=== PATIENT | male | born 1995 | race Caucasian/White ===

== ENCOUNTER 2017-05-23 20:02 | Emergency (ER) | payer OTHER, MEDICAID, SELFPAY ==
[2017-05-23 20:04] VITALS: BP 100/59; PULSE 86; RESP 17; TEMP 36.9; O2SAT 98; BMI 32.4
[2017-05-23 20:09] VITALS: BP 100/59; PULSE 90; RESP 17; O2SAT 99
--- NOTE | 2017-05-23 20:36 | CT_ITS ---
STUDY: CT ABDOMEN AND PELVIS WITH CONTRAST REASON FOR EXAM: Male, 21 years old. PT HAD EPISODE OF NEAR SYNCOPE AT HOME, DIAPHORETIC, CHANGES IN FACE AND TONGUE COLOR, ABD PAIN X 2 WEEKS, PT HAS DOWN SYNDROME, ATRIAL SEPTAL DEFECT, MVP RADIATION DOSAGE (If Supplied By Facility): CTDIvol = ( 15.00 ) mGy, DLP = ( 2262.20 ) mGycm TECHNIQUE: Transaxial images were obtained from the dome of the diaphragm to the symphysis pubis with oral contrast. 75ML ml of Isovue 370 contrast was administered. Sagittal and coronal images were reconstructed. Individualized dose optimization techniques were used for this CT. COMPARISON: None. FINDINGS: The visualized lung bases are unremarkable. The visualized portions of the heart are within normal limits. There is a linear density that is seen projecting near the region of the atrial septum, presumably from a prior intervention. Normal liver. Normal gallbladder and extrahepatic biliary system. Normal spleen. Normal pancreas. Normal bilateral adrenal glands. Normal right kidney. Normal left kidney. Normal visualized stomach. Normal small intestine. Normal colon. There is non-visualization of the appendix. No inflammatory changes in the region of the appendix. Normal abdominal aorta. Normal inferior vena cava. Normal retroperitoneum. Normal urinary bladder. Normal visualized prostate gland. Normal abdominal wall. Normal osseous structures. CT/Abdomen/Pelvis WITH Contrast IMPRESSION: No acute abnormality of the abdomen or pelvis. Electronically Signed: Mercedes Estrada MD at 23:01 EST Tel , Service support ,
--- NOTE | 2017-05-23 20:36 | EKG12_ITS ---
Test Reason : MAITE Blood Pressure : / mmHG Vent. Rate : 057 BPM Atrial Rate : 057 BPM P-R Int : 150 ms QRS Dur : 148 ms QT Int : 416 ms P-R-T Axes : 011 -47 -04 degrees QTc Int : 404 ms Sinus bradycardia with sinus arrhythmia Right bundle branch block Left anterior fascicular block Bifascicular block Abnormal ECG Confirmed by JIMMIE STRICKLAND, EDNA ([id number]), associate entertainment editor ROC RAY ([id number]) on 05/25/2017 2:24:20 PM Referred By: DR. RING Confirmed By:EDNA SAMUEL MD
--- NOTE | 2017-05-23 20:42 | ED.RN ---
NO OLD EKG'S IN MUSE
[2017-05-23 20:49] LABS: Absolute Lymphocyte Count 1.55 X10^3/ul (0.83-4.51); Absolute Neutrophil Count 6.5 X10^3/uL (2.0-7.7); Basophil# 0.06 X10^3/uL; Basophil% 0.7 % (0-1); Eosinophil# 0.09 X10^3/uL; Hematocrit 46.1 % (40-54); Hemoglobin 16.3 g/dl (13.0-16.5); Lymphocyte # 1.55 X10^3/ul (4.0); Mean Corp Hgb Conc 35.4 g/gl (32-36); Mean Corpuscular Hgb 32.8 pg (27.0-32.0); Mean Corpuscular Volume 92.8 fL (80-94); Monocyte# 0.46 X10^3/uL; Monocyte% 5.3 % (0-10); Neutrophil # 6.46 X10^3/uL (2.7-7.7); Neutrophil % 74.9 % (47-70); Platelet Count 225 K/mm3 (150-450); RBC Distribution Width CV 13.5 % (11.6-14.6); RBC Distribution Width SD 45.2 fl (35.1-43.9); Red Blood Count 4.97 M/mm3 (4.6-6.2); White Blood Count 8.6 K/mm3 (4.4-11.0)
[2017-05-23 20:50] LABS: POSITIVE COUNT NO; POSITIVE DIFFERENTIAL NO; POSITIVE MORPHOLOGY NO
[2017-05-23 20:54] VITALS: BP 119/78; BP 127/112; BP 133/112; PULSE 70; PULSE 94; PULSE 95
[2017-05-23 20:57] LABS: Anion Gap 10 (5-15); BUN 15 mg/dL (7-18); BUN/Creat Ratio 14.3 RATIO (10-20); Calcium,Total 8.9 mg/dL (8.5-10.1); Chloride 105 mmol/L (98-107); Creatinine, Serum 1.05 mg/dL (0.70-1.30); EST Glomerular Filtration Rate 96 mL/min (>60); Est Glom Filt Rate - Afr Amer 116 mL/min (>60); Estimated Creatinine Clearance 112.68 ml/min; Glucose 102 mg/dL (74-106); Potassium 3.7 mmol/L (3.5-5.1); Sodium Level 141 mmol/L (136-145)
[2017-05-23] MEDS: 0.9% Normal Saline 1,000 ML 1000 ML IV (21:04)
[2017-05-23 21:52] LABS: Bacteria 0 SEEN /hpf (None Seen); Mucous, Urine 0 SEEN /hpf (<or=2+); Red Blood Cells-Urine 0 SEEN /hpf (0-5)
[2017-05-23 21:57] LABS: Color, Urine Yellow (Yellow); Glucose, Dipstick Normal (Normal); Ketone-Dipstick Negative (Negative); Leukocyte Esterase-Dipstick 25 /ul (Negative); Nitrite-Dipstick Negative (Negative); Occult Blood-Urine Negative /ul (Negative); Protein-Dipstick 15 mg/dl (Negative); Specific Gravity, Urine 1.015 (1.002-1.030); Urine Bilirubin Dipstick Negative (Negative); Urine Clarity Sl. Cloudy (Clear); Urine Urobilinogen Normal (Normal)
--- NOTE | 2017-05-23 22:04 | CT_ITS ---
STUDY: CTA CHEST REASON FOR EXAM: Male, 21 years old. PT HAD EPISODE OF NEAR SYNCOPE AT HOME, DIAPHORETIC, CHANGES IN FACE AND TONGUE COLOR, ABD PAIN X 2 WEEKS, PT HAS DOWN SYNDROME, ATRIAL SEPTAL DEFECT, MVP RADIATION DOSAGE (If Supplied By Facility): CTDIvol = ( 15.00 ) mGy, DLP = ( 2262.20 ) mGycm TECHNIQUE: The examination was performed with the intravenous administration of 75ML ml of Isovue 370 contrast material. Post-processing of the angiographic images was performed, with multiplanar reformation and 3D reconstruction. Individualized dose optimization techniques were used for this CT. COMPARISON: None. FINDINGS: Normal enhancement of the main pulmonary artery and right and left pulmonary arteries. Normal enhancement of the bilateral peripheral pulmonary arteries. There is no demonstrated pulmonary embolism. Normal thoracic aorta and visualized great vessels. There is no demonstrated aortic dissection. Normal heart and pericardium. Normal mediastinum. Normal hilar regions. Normal visualized trachea and bronchi. The lungs are well expanded. Normal pulmonary parenchyma. Normal pleura. Normal chest wall structures. Normal osseous structures. Normal visualized upper abdomen. CT/CTA Chest W/WO Contrast IMPRESSION: Normal CTA chest examination, without a demonstrated pulmonary embolism or arterial dissection. Electronically Signed: Mercedes Estrada MD at 23:08 EST Tel , Service support ,
[2017-05-23 22:09] LABS: Squamous Epithelial Cells - UA 0-5 SEEN /hpf (0-5); White Blood Cells 0-5 SEEN /hpf (0-5)
--- NOTE | 2017-05-23 23:01 | ED.DCSUM_ITS ---
- ER Visit Summary Date of Service: 05/23/17 Chief Complaint: Syncope History of Present Illness: The patient is a 21 M presenting after syncopal episode. Family states that the patient stood up felt dizzy and passed out in a family member's arms. He did feel this coming on. He complains of abdominal pain and nausea. Denies vomiting or diarrhea. He has a history of hypothyroidism and Down syndrome. He had ASD repair at age 6. No problems since that time. He is not a smoker. Denies chest pain or shortness of breath. Physical Examination: Vitals are stable. Patient is afebrile. Alert no acute distress. HEENT exam is unremarkable. Neck is supple. Lungs are clear and equal bilaterally. Heart is regular rate and rhythm. Abdomen is soft right lower quadrant tenderness, no rebound or guarding. Extremities are unremarkable. Skin is warm and dry. No focal neurologic deficit. Remainder of exam is unremarkable. Emergency Department Course and Treatment: EKG is sinus rate of 57 with bifascicular block. No old for comparison. CBC, chemistries unremarkable. Urinalysis is normal. Influenza negative. Orthostatics negative. He was given IV fluids with improvement. CTA chest shows no PE or dissection. CT abdomen and pelvis shows no acute process, appendix is not visualized, no inflammatory changes in the right lower quadrant. Parents are advised to watch him closely for the next 24-48 hours. Advised return to ED if he has any worsening complaints. He is able to ambulate in the ED and has no further dizziness. He feels much improved. He has no abdominal tenderness on re-exam. Advised to follow-up with PCP and advised to return to ED for worsening complaints. Disposition: Discharge home Impression: Syncope, abdominal pain This note was generated with [employer] dictation software. It may contain incorrect words, spelling, and punctuation that were not noted in review of the chart prior to signing ED Disposition - Plan for ED Patient: Chief Complaint: Syncope Referrals: Paola Crooks NP-C [Primary Care Provider] -
--- NOTE | 2017-05-23 23:41 | ED.DEP ---
ED Disposition - Plan for ED Patient: Chief Complaint: Syncope Instructions: ED Fainting Unkn Cause, ED Abdominal Pain Unkn Cause Referrals: Paola Crooks, SOCK BOARDER-C [Primary Care Provider] -
[2017-05-23 23:49] VITALS: BP 118/69; PULSE 92; RESP 20; O2SAT 96
== END 2017-05-23 23:49 | disposition home or self-care (01) ==
PROVIDERS: Emergency Provider Emergency Medicine; Family Provider Nurse Practitioner Primary Care; PCP Nurse Practitioner Primary Care
DX: R55 Syncope and collapse (principal); R10.813 Right lower quadrant abdominal tenderness; E03.9 Hypothyroidism, unspecified; Q90.9 Down syndrome, unspecified; I45.2 Bifascicular block; Z79.899 Other long term (current) drug therapy
CPT/HCPCS: 71275; 74177; 80048; 81001; 85025; 87804; 93005; 96360; 96361; 96365; 96366; 99285; J7030; Q9967; A4216

== ENCOUNTER 2017-06-24 21:45 | Emergency (ER) | payer OTHER, MEDICAID, SELFPAY ==
[2017-06-24 21:46] VITALS: BP 122/83; PULSE 105; RESP 19; TEMP 36.9; O2SAT 98; BMI 30.6
--- NOTE | 2017-06-24 21:52 | EKG12_ITS ---
Test Reason : PAIN Blood Pressure : / mmHG Vent. Rate : 105 BPM Atrial Rate : 105 BPM P-R Int : 150 ms QRS Dur : 130 ms QT Int : 346 ms P-R-T Axes : 039 -52 025 degrees QTc Int : 457 ms Sinus tachycardia with frequent Premature ventricular complexes Right bundle branch block Left anterior fascicular block Bifascicular block Abnormal ECG Confirmed by XIMENA STRICKLAND, ROCAEL ([id number]), publishing editor ROC RAY ([id number]) on 06/27/2017 4:14:16 PM Referred By: CHAPO Confirmed By:ROCAEL BUENO MD
--- NOTE | 2017-06-24 22:15 | RAD_ITS ---
STUDY: X-RAY CHEST REASON FOR EXAM: Male, 21 years old. Fever TECHNIQUE: Frontal and lateral views of the chest were obtained. COMPARISON: CTA chest dated May 23, 2017 FINDINGS: The lungs are underaerated. There are no focal airspace opacities. There is no demonstrated pleural abnormality. The cardiac silhouette is normal in size. The mediastinum and hilar regions are unremarkable. Normal visualized pulmonary arteries. Normal visualized aortic arch and descending thoracic aorta. The thoracic spine is unremarkable. The visualized ribs, clavicles, and shoulders are unremarkable. There is no demonstrated abnormality of the visualized upper abdomen. RAD/Chest PA and Lateral IMPRESSION: There is no evidence of focal consolidation or pleural effusion. Electronically Signed: Maria Guadalupe Mendieta MD at 23:23 EDT Tel Direct: [phone], Service support ,
--- NOTE | 2017-06-24 22:17 | ED.VISSUMM ---
- ER Visit Summary Date of Service: 06/24/17 Chief Complaint: Fever and abdominal pain History of Present Illness: The patient is a 21 M Downs syndrome and hypothyroidism. As a 6-year-old had ASD repair. He was treated in the ER several weeks ago with a negative workup according to the family. Yesterday and today started having abdominal pain with reported fever. Family denies nausea, vomiting and diarrhea. Denied dysuria. He did not stop denies any prior abdominal surgeries. Physical Examination: Young male vital signs stable afebrile. Pulse ox 98% room air no signs of hypoxia. H EENT exam dry mucous membranes. No erythema. No exudate. TMs cannot be visualized due to wax bilaterally. Neck nontender no lymphadenopathy or meningismus. Lungs clear to auscultation bilaterally. No rales rhonchi or wheezing no significant cough. Heart tachycardic rate of 105. Abdomen is soft diffusely tender throughout. Nondistended. No peritoneal signs. No hernias or masses. No localizing right upper or right lower quadrant tenderness. Moving all 4 extremities. Nontender. No erythema. No edema. Back exam nontender. Neurologically is Down syndrome he is awake and alert. He will open his eyes. He does follow limited commands. He really does not answer many questions. Test Results: Chest x-ray showed no acute abnormality no infiltrate read both by myself the radiologist. CBC normal with a white count of 6. BMP normal. With a normal creatinine and gap. Liver enzymes and lipase normal. UA normal. CT abdomen pelvis with IV contrast showed no acute abnormalities read by the radiologist reviewed by me. No signs of appendicitis. EKG sinus rhythm rate of 105 with a right bundle branch block. That was ordered by nursing. Emergency Department Course and Treatment: Male with reported abdominal pain and a fever at home. Treatment Plan: Gio exam the patient is doing well at 0105. Abdomen is benign there are no peritoneal signs is nondistended. I discussed all test results with the patient and family and they are comfortable being discharged to home. Disposition: Discharge Impression: Acute abdominal pain uncertain etiology Acute viral syndrome This note was generated with [employer] software. It may contain incorrect words, spelling, and punctuation that were not noted in review of the chart prior to signing ED Disposition - Plan for ED Patient: Chief Complaint: Abd Pain Referrals: Paola Crooks NP-C [Primary Care Provider] -
[2017-06-24] MEDS: 0.9% Normal Saline 1,000 ML 1000 ML IV (22:18)
[2017-06-24 22:28] LABS: Absolute Lymphocyte Count 0.74 X10^3/ul (0.83-4.51); Absolute Neutrophil Count 5.3 X10^3/uL (2.0-7.7); Basophil# 0.06 X10^3/uL; Basophil% 0.9 % (0-1); Eosinophil# 0.03 X10^3/uL; Eosinophils% 0.5 % (0-5); Lymphocyte # 0.74 X10^3/ul (4.0); Lymphocyte % 11.6 % (19-41); Mean Corp Hgb Conc 34.8 g/gl (32-36); Mean Corpuscular Hgb 32.6 pg (27.0-32.0); Mean Corpuscular Volume 93.7 fL (80-94); Monocyte# 0.23 X10^3/uL; Monocyte% 3.6 % (0-10); Neutrophil % 83.2 % (47-70); Platelet Count 174 K/mm3 (150-450); RBC Distribution Width CV 13.4 % (11.6-14.6); RBC Distribution Width SD 46.2 fl (35.1-43.9); Red Blood Count 4.91 M/mm3 (4.6-6.2); White Blood Count 6.4 K/mm3 (4.4-11.0)
[2017-06-24 22:30] LABS: POSITIVE COUNT NO; POSITIVE DIFFERENTIAL NO; POSITIVE MORPHOLOGY NO
--- NOTE | 2017-06-24 22:50 | CT_ITS ---
STUDY: CT ABDOMEN AND PELVIS WITH CONTRAST REASON FOR EXAM: Male, 21 years old. Abdominal pain. Fever. RADIATION DOSAGE (If Supplied By Facility): DLP = ( 1154 ) mGycm TECHNIQUE: Transaxial images were obtained from the dome of the diaphragm to the symphysis pubis without oral contrast. 100ML ml of Isovue 300 contrast was administered. Sagittal and coronal images were reconstructed. Individualized dose optimization techniques were used for this CT. COMPARISON: 05/23/2017 FINDINGS: This study is limited by patient motion. The visualized lung bases are clear. The visualized portions of the heart and pericardium are within normal limits. There are no calcified gallstones present. The liver is within normal limits. There are no suspicious hepatic lesions. The spleen is normal in size. The pancreas is within normal limits. The adrenal glands are within normal limits. There are no obstructing renal stones. There is no hydronephrosis. There are no focal renal lesions. Normal visualized stomach. There is no bowel obstruction or inflammation. The appendix is not visualized, but there are no findings to suggest acute appendicitis. The aorta is normal in caliber. There is no abdominal or pelvic free air, free fluid, fluid collection or lymphadenopathy. There are no destructive osseous lesions. CT/Abdomen/Pelvis W IV Cont ONLY IMPRESSION: No acute abdominal or pelvic pathology. Electronically Signed: Anupam Hsu, at 23:25 EDT Tel , Service support ,
[2017-06-24 22:53] LABS: AST(SGOT) 21 U/L (15-37); Alanine Aminotransfer ALT/SGPT 25 U/L (16-61); Albumin, Serum 3.7 g/dL (3.2-5.0); Alkaline Phosphatase 111 U/L (45-117); Anion Gap 9 (5-15); BUN 17 mg/dL (7-18); BUN/Creat Ratio 14.3 RATIO (10-20); Bilirubin, Direct 0.11 mg/dL (0.00-0.30); Calcium,Total 8.6 mg/dL (8.5-10.1); Chloride 105 mmol/L (98-107); Creatinine, Serum 1.19 mg/dL (0.70-1.30); EST Glomerular Filtration Rate 83 mL/min (>60); Est Glom Filt Rate - Afr Amer 100 mL/min (>60); Estimated Creatinine Clearance 70.61 ml/min; Globulin 4.5 g/dL (2.2-4.2); Glucose 94 mg/dL (74-106); Lipase 119 U/L (73-393); Potassium 3.7 mmol/L (3.5-5.1); Protein, Total 8.2 g/dL (6.4-8.2); Sodium Level 139 mmol/L (136-145)
[2017-06-24] MEDS: Ondansetron 4 MG/2 ML Vial IV (23:05)
[2017-06-24 23:16] VITALS: BP 130/104; PULSE 103; RESP 21; O2SAT 96
[2017-06-24 23:42] LABS: Bacteria 0 SEEN /hpf (None Seen); Mucous, Urine 0 SEEN /hpf (<or=2+); Red Blood Cells-Urine 0 SEEN /hpf (0-5); Squamous Epithelial Cells - UA 0 SEEN /hpf (0-5); White Blood Cells 0 SEEN /hpf (0-5)
[2017-06-24 23:47] LABS: Color, Urine Yellow (Yellow); Glucose, Dipstick Normal (Normal); Ketone-Dipstick Negative (Negative); Leukocyte Esterase-Dipstick Negative /ul (Negative); Nitrite-Dipstick Negative (Negative); Occult Blood-Urine Negative /ul (Negative); Protein-Dipstick Negative (Negative); Urine Bilirubin Dipstick Negative (Negative); Urine Clarity Clear (Clear); Urine Urobilinogen Normal (Normal)
--- NOTE | 2017-06-25 01:12 | ED.DEP ---
ED Disposition - Plan for ED Patient: Disposition: Home or Assisted Living Chief Complaint: Abd Pain Instructions: ED Abdominal Pain Unkn Cause, ED Viral Syndrome Referrals: Paola Crooks, SENIOR PRINCIPAL PROCESS ENGINEER-C [Primary Care Provider] - As Needed Additional Instructions: Fluids and rest. Zofran as needed for nausea. Return if feeling worse or follow-up your primary care physician if not improving.
[2017-06-25] MEDS: Ondansetron ODT 4 MG Tablet PO (01:28)
[2017-06-25 01:32] VITALS: BP 130/72; PULSE 81; RESP 17; O2SAT 95
--- NOTE | 2017-06-25 01:33 | ED.RN ---
IV DC'ED, CATHETER INTACT, SMALL GAUZE DRESSING PLACED. DISCHARGE INSTRUCTIONS GIVEN TO AND REVIEWED WITH PATIENT AND FAMILY, ALL DENY QUESTIONS OR CONCERNS AND VOICE UNDERSTANDING OF DISCHARGE INSTRUCTIONS. PT AMBULATES OUT OF ROOM WITHOUT DIFFICULTY.
== END 2017-06-25 01:34 | disposition home or self-care (01) ==
PROVIDERS: Emergency Provider Emergency Medicine; Family Provider Nurse Practitioner Primary Care; PCP Nurse Practitioner Primary Care
DX: R10.9 Unspecified abdominal pain (principal); R50.9 Fever, unspecified; B34.9 Viral infection, unspecified; I45.2 Bifascicular block; Q90.9 Down syndrome, unspecified; E03.9 Hypothyroidism, unspecified; Z79.899 Other long term (current) drug therapy
CPT/HCPCS: 71046; 74177; 80048; 80076; 81001; 83690; 85025; 93005; 96361; 96374; 99285; J7030; Q9967; J2405

== ENCOUNTER 2020-03-25 11:23 | Observation (INO) | payer MEDICAID, SELFPAY ==
[2020-02-19 11:45] VITALS: BMI 32.4
--- NOTE | 2020-03-23 14:19 | EKG12_ITS ---
Test Reason : PRE OP Blood Pressure : / mmHG Vent. Rate : 082 BPM Atrial Rate : 082 BPM P-R Int : 156 ms QRS Dur : 142 ms QT Int : 388 ms P-R-T Axes : 042 -53 033 degrees QTc Int : 453 ms Normal sinus rhythm Right bundle branch block Left anterior fascicular block Bifascicular block Voltage criteria for left ventricular hypertrophy Abnormal ECG Confirmed by CHANDLER STRICKLAND, PASHA ([id number]), supervising editor trailer MORAIMA PALOMINO ([id number]) on 04/05/2020 9:08:01 AM Referred By: Tommy West Confirmed By:GRZEGORZ ARTEAGA MD
--- NOTE | 2020-03-24 23:12 | PCM.HP.BLA ---
History and Physical Date of Admission: 03/25/20 HISTORY OF PRESENT ILLNESS Patient is a 24 year old male with Down's who comes in today with persistent pain from recent flare up of hidradenitis left axilla. He just finished a course of Minocycline. He has also applied Clindamycin gel. He states he has had I&D procedures in the past. He has been having trouble with hidradenitis for the past year. He denies fever. He denies trauma. He has had intermittent drainage. He presents at this time for further evaluation and treatment. PAST MEDICAL HISTORY Left axillary hidradenitis Heart murmur Heart valve problem IBS (irritable bowel syndrome) Recurrent infections Vision problems Hypothyroid Down's PAST SURGICAL HISTORY Atrial septal defect mitral valve repair strabismus surgery tonsillectomy ALLERGIES cefazolin [From [facility]] MEDICATIONS Lactobacillus acidoph-L.bulgaricus clindamycin phosphate 1 % lotion multivitamin minocycline FAMILY HISTORY Grandfather - Diabetes Grandfather - Heart disease, Hypertension, High cholesterol SOCIAL HISTORY Smoking Status: Never smoker alcohol intake: never substance use type: does not use REVIEW OF SYSTEMS General - Denies fever, fatigue, and weight loss. Eyes - Denies cataracts and glaucoma. ENT - Denies nasal congestion and sore throat. History of tonsillectomy. Surgery on both eyes because they were turning in. Endocrine - Denies excessive thirst and urination. Skin - Denies suspicious lesions and skin cancer. Musculoskeletal - Denies joint pain, joint stiffness, weakness of muscles and joints, back pain, and arthritis. Neuro - Denies headaches. Cardiovascular - Denies chest pain, fatigue, and shortness of breath with exertion. Has a history of heart heart murmur with an atrial septal defect repair and mitral valve repair at age 6. Psych - Denies anxiety and depression. Respiratory - Denies chronic cough and shortness of breath. Gastrointestinal - Denies nausea and vomiting. He has a history of IBS that was diagnosed in 2018. Hematologic - Denies abnormal bruising and bleeding. Genitourinary - Denies hematuria and urinary frequency. PHYSICAL EXAMINATION General - Alert and oriented. HEENT - PERRL. EOMI. Throat is clear. Neck - Supple and non-tender. No cervical adenopathy. Lungs- Clear to auscultation. Heart - Regular rate and rhythm. Abdomen - Soft and non distended. Extremities - FROM. No axillary adenopathy. Radial pulses are palpable. In the left axilla is an area of redness and induration and tenderness to palpation consistent with hidradenitis. No fluctuance. No purulent drainage. Measures 8 cm. Neuro - CN II-XII grossly intact. Psych - Normal mood and affect. ASSESSMENT Left axillary hidradenitis. PLAN Recommend excision of his persistent hidradenitis left axilla which can be done under general anesthesia and a surgical observation overnight stay in the hospital. Tissue that is removed will be sent to Pathology for analysis to rule out carcinoma and to Microbiology for culture. A positive culture will necessitate antibiotic therapy. Will leave the wound open and begin wound care with the VAC. After discharge can followup at [facility]. If there is a plateau in the healing process, can proceed with delayed closure with skin grafting. Will schedule the surgery in the next 1-2 weeks. Will renew Minocycline that he can take until the surgery and can also use in the future for flare ups. Patient and his mother were informed of the risks and complications of the procedure including alternatives to surgery. These were discussed with them personally. They voice understanding and wish to proceed. Some of the risks and complications were included in a form from the [place] [employer]. We discussed the current risks associated with COVID-19. While it is understood that there is a community spread of COVID-19, the risk of lissa COVID-19 while at [facility] ([facility]) is very low; however, the risk cannot be completely mitigated because of the community spread of the disease. We discussed in detail the risk of exposure to and/or potential harm posed by the COVID-19 virus with having a surgery/procedure at this time versus the risk of delaying the surgery/procedure. It is not possible to know either the risk of delaying the surgery or procedure or chance of getting an infection with perfect accuracy, but a joint decision was made to proceed at this time with the scheduled surgery/procedure as indicated on the consent form. Patient was notified that we will need to comply with any screening or testing [facility] wishes to perform or that surgery may be delayed for any positive results. Discussed with the patient and his mother that I was tested for COVID-19 on 10/16/19 which was negative and on 10/30/19 which was negative and on 11/13/19 which was negative and on 11/27/19 which was negative and on 12/11/19 which was negative and on 01/01/20 which was negative and on 01/22/20 which was negative and on 02/26/20 which was negative and on 03/18/20 which was negative. My testing regimen at this time is to be COVID-19 tested every 2 weeks or so. Procedure Criteria Procedure Type: Elective COVID Risk Discussion: The surgeon/proceduralist and patient have discussed in detail the risk of exposure to and/or potential harm posed by the COVID-19 virus with having a surgery/procedure at this time versus the risk of delaying the surgery/procedure. It is not possible to know either the risk of delaying the surgery or procedure or chance of getting an infection with perfect accuracy, but a joint decision was made between the patient and the surgeon/proceduralist to proceed at this time with the scheduled surgery/procedure as indicated on the consent form.
[2020-03-25] VITALS (11 sets, daily range): BP systolic 98–133; BP diastolic 57–84; PULSE 60–81; RESP 16–18; TEMP 36.3–37.2; O2SAT 94–99; BMI 30.2; BMI 33.5
[2020-03-25] MEDS: Lactated Ringers 1,000 ML 100 ML IV (09:42)
--- NOTE | 2020-03-25 10:45 | SOF_PTH ---
PATIENT: ROSETTE CROOKS LOC: MS3 U#:[id number] AGE/SX: 24/M ROOM: MS306 RE03/25/[address]: Dr. Tommy West MD : 1995 BED: 1 DIS: 03/26/2020 SPEC #: [id number] RECD: 03/25/20 11:17 STATUS: TOÑO REQ #: [id number] JOSÉ: 03/25/20 10:[address]: Tommy West DEPT: SURGICAL PATHOLOGY RECD BY: Ivana Mckoy ENTERED: 03/25/20 11:31 SP TYPE: SOFT TISS OTHR DR: Paola Crooks, OPEN HEARTH HELPER-C Tissues: Soft tissues, NOS Procedures: Special Stain Group I Surgery Specimen Level IV AFB Stain (control) GMS Stain (control) HEADER OPERATION: Surgical preparation axilla excision, hidradenitis PRE-OP DIAGNOSIS: Left axillary hidradenitis TISSUE SUBMITTED: Soft tissue left axilla MICROSCOPIC DIAGNOSIS Soft tissue left axilla: Acute and chronic inflammation, abscess formation, granulation tissue reaction and foreign body giant cell reaction. Epidermal inclusion cyst. Six benign lymph nodes with reactive lymphoid hyperplasia. Special stains for acid fast bacilli and fungi are negative for organisms; matched controls are appropriate. YAYA:jefferson 03/26/20 MICROSCOPIC DESCRIPTION Slides are reviewed. GROSS DESCRIPTION Received in fixative is one container labeled with the patient's name and designated soft tissue left axilla. The specimen consists of a piece of skin with underlying tissue measuring 6.5 x 3.5 cm and up to 3 cm in thickness. Sections reveal two nodules, possible lymph nodes, focal congested area. The largest lymph node measures 2.5 cm in greatest dimension. Accident Examiner sections are submitted in six cassettes as follows: 1 & 2 - skin with underlying tissue, 3 - two lymph nodes, 4 - one bisected lymph node, 5 - two lymph nodes, 6 - one lymph node. / YAYA:jefferson 03/25/20 TC:2 CPT: 84537, 92318 x2
[2020-03-25] MEDS: Lidocaine 1% /Epi 1:100 (20ml) 20 ML Vial (10:52)
--- NOTE | 2020-03-25 11:18 | OP.PCM_ITS ---
Report of Operation Date of Procedure: 03/25/20 Pre-Operative Diagnosis: Left axillary hidradenitis. Post-Operative Diagnosis: Same. Surgery/Procedure Performed:: Surgical preparation left axilla with excision hidradenitis (63 cm2). Description of Surgical Findings:: Patient is a 24 year old male with Down's who comes in today with persistent pain from recent flare up of hidradenitis left axilla. He just finished a course of Minocycline. He has also applied Clindamycin gel. He states he has had I&D procedures in the past. He has been having trouble with hidradenitis for the past year. He denies fever. He denies trauma. He has had intermittent drainage. Patient and his mother were informed of the risks and complications of the procedure including alternatives to surgery. These were discussed with them personally. They voice understanding and wish to proceed. Some of the risks and complications were included in a form from the [place] [employer]. Size of defect left axilla - 10.5 x 6 x 2 cm. clerk entry level: None Type of Anesthesia:: General Specimen's removed: Left axillary hidradenitis to Pathology and Microbiology. Drains: None. Estimated Blood Loss (mL): 10 ml. Description of Procedure: Patient was taken to OR in supine position and was placed under general anesthesia. The left axilla was prepped and draped in the usual fashion. SCD's were placed for DVT prophylaxis. Perioperative antibiotics were given intravenously. For the procedure, I wore an N95 mask and wore proper eyewear protection. Using a scalpel, I proceeded with surgical preparation of the left axilla with excision of her hidradenitis. No purulent drainage was seen. In the subcutaneous tissue, there was extensive fat necrosis. There was extensive indurated scar tissue extending down to the underlying muscle and was excised. Some of the tissue was sent to Pathology for analysis to rule out carcinoma and to Microbiology for culture. A positive culture will necessitate antibiotic therapy. The wound was irrigated with saline. Hemostasis was obtained with electrocautery. The size of the defect left axilla after excision hidradenitis was 10.5 x 6 x 2 cm or 63 cm2. The wound was dressed with Mepitel nonadherent dressing followed by Kerlix gauze and Betadine followed by dry Kerlix gauze followed by ABD pads and compression COURTNEY wrap. Patient tolerated the procedure well and was sent to PACU in satisfactory condition. Patient will be sent upstairs for continued postop care. The VAC will be applied tomorrow. Grafts/Implants Used: None. - Complications None. - Admit VTE Documentation VTE Present on Admission: No VTE Mechan Device Prophylaxis: SCD's VTE Pharm Prophylaxis ordered?: No Surgery Charges CPT - 84080 ICD-10 - L73.2
[2020-03-25] MEDS: Lactated Ringers 1,000 ML 60 ML IV (13:05)
--- NOTE | 2020-03-25 14:07 | PCS.PANDOC ---
PANDEMIC DOCUMENTATION INITIATED: Date: 03/25/2020 Time: 8900
[2020-03-25] MEDS: Multivitamins,Therapeutic Tablet 2 TABLET PO (16:14)
[2020-03-25] MEDS: oxyCODONE 5 MG Tablet 10 MG PO (17:15)
[2020-03-25] MEDS: Docusate Sodium 100 MG Capsule PO (22:54)
[2020-03-26] MEDS: oxyCODONE 5 MG Tablet 10 MG PO ×2 (01:07→09:50)
[2020-03-26 01:10] VITALS: BP 105/63; PULSE 66; RESP 18; TEMP 36.2; O2SAT 95
[2020-03-26] MEDS: Lactated Ringers 1,000 ML 60 ML IV (05:54)
[2020-03-26 06:03] VITALS: BP 110/68; PULSE 72; RESP 18; TEMP 36.3; O2SAT 95
[2020-03-26 07:09] LABS: Hemoglobin 14.9 g/dL (13.0-16.5); Mean Corp Hgb Conc 33.1 g/dL (32-36); Mean Corpuscular Hgb 31.6 pg (27.0-32.0); Mean Corpuscular Volume 95.5 fL (80-94); Mean Platelet Vol. 9.4 fl (6.2-12.0); Platelet Count 200 K/mm3 (150-450); RBC Distribution Width CV 13.2 % (11.6-14.6); RBC Distribution Width SD 47.4 fl (35.1-43.9); Red Blood Count 4.71 M/mm3 (4.6-6.2); White Blood Count 4.6 K/mm3 (4.4-11.0)
[2020-03-26 07:38] LABS: Anion Gap 3 (5-15); BUN 18 mg/dL (7-18); BUN/Creat Ratio 18.7 RATIO (10-20); Calcium,Total 8.2 mg/dL (8.5-10.1); Chloride 104 mmol/L (98-107); Creatinine, Serum 0.96 mg/dL (0.70-1.30); EST Glomerular Filtration Rate 103 mL/min (>60); Est Glom Filt Rate - Afr Amer 125 mL/min (>60); Estimated Creatinine Clearance 85.36 ml/min; Glucose 85 mg/dL (74-106); Potassium 4.2 mmol/L (3.5-5.1); Prealbumin 25.8 mg/dL (20.0-40.0); Sodium Level 136 mmol/L (136-145)
[2020-03-26 09:00] VITALS: BP 98/60; PULSE 63; RESP 18; TEMP 37.1; O2SAT 98
[2020-03-26] MEDS: Multivitamins,Therapeutic Tablet 2 TABLET PO (09:44)
[2020-03-26] MEDS: Docusate Sodium 100 MG Capsule PO (09:44)
--- NOTE | 2020-03-26 09:45 | CASEMGMT ---
Addendum entered by Beatriz Thomas 03/26/20 11:02: SARAI LEO called Kasi at [facility] and they are able to accept the patient. RN FELIPA updated wound nurse and mother. Original Note: SARAI LEO updated by wound nurse that patient will need C for wound vac dressing changes. SARAI LEO in to discuss HHC agencies with mother in room. Mother states that she has no preference for HHC as long as in-network with [employer] insurance. SARAI LEO sent referral to [facility] and they are not able to accept the patient. Referral sent to [facility] and awaiting call back. CM will continue to follow this patient and plan for a safe discharge.
--- NOTE | 2020-03-26 11:10 | NURSING ---
wound photo: left axilla
--- NOTE | 2020-03-26 12:54 | PN.SURG_ITS ---
Subjective: Postop #1 Patient is resting comfortably. VAC applied today. - Physical Exam Vitals/I&O's: Vital Signs Temp Pulse Resp BP Pulse Ox 98.7 F 63 18 98/60 98 03/26/20 09:00 03/26/20 09:00 03/26/20 09:00 03/26/20 09:00 03/26/20 09:00 Oxygen Delivery Method Room Air Weight: 171 lb 15.369 oz Body Mass Index (BMI) 33.5 Intake and Output for Last 24 Hours 03/24/20 03/25/20 03/26/20 23:59 23:59 23:59 Intake Total 1502.33 / 1502.33 1154 / 1154 Balance 1502.33 / 1502.33 1154 / 1154 General: Alert, Oriented x3 HEENT: PERRLA, EOMI Oral: Moist Mucosa Neck: Supple Abdomen: Soft, Non-Distended Skin: Ulcer/ Wound - left axillary wound stable. No active bleeding. VAC applied today. Neurological: Cranial nerves II-XII grossly intact Psych/Mental Status: Normal Affect, Appropriate Microbiology Past 72 Hours 03/25/20 10:59 Other - Other Gram Stain - Final 03/23/20 14:30 Interface Orders SARS-CoV-2 Antigen (Rapid) - Final Laboratory Results 03/26/20 06:33: WBC 4.6, RBC 4.71, Hgb 14.9, Hct 45.0, MCV 95.5 H, MCH 31.6, MCHC 33.1, RDW Std Deviation 47.4 H, RDW Coeff of Etienne 13.2, Plt Count 200, MPV 9.4 03/26/20 06:33: Sodium 136, Potassium 4.2, Chloride 104, Carbon Dioxide 29.0, Anion Gap 3 L, BUN 18, Creatinine 0.96, Estim Creat Clear Calc 85.36, Est GFR (MDRD) Af Amer 125, Est GFR (MDRD) Non-Af 103, BUN/Creatinine Ratio 18.7, Glu cose 85, Calcium 8.2 L, Prealbumin 25.8 Current Medications Diazepam (Diazepam 5 Mg Tablet) 5 mg PO 4X/DAY PRN PRN PRN Reason: SPASMS Docusate Sodium (Docusate Sodium 100 Mg Capsule) 100 mg PO BID MIYA Last Admin: 03/26/20 09:44 Dose: 100 mg Documented by: Hydromorphone HCl (Hydromorphone 1 Mg/Ml Syringe) 1 mg IV Q4H PRN PRN PRN Reason: Pain Score 6-10 Clindamycin Phosphate 600 mg/ (Dextrose) 54 mls @ 100 mls/hr IV Q8 [facility] Last Infusion: 03/26/20 06:47 Dose: Infused Documented by: Lactated Ringer's () 1,000 mls @ 60 mls/hr IV .[id number] [facility] Last Admin: 03/26/20 05:54 Dose: 60 mls/hr Documented by: Lactobacillus Acidophilus (Lactobacillus Acidophilus) 1 tablet PO TID [facility] Last Admin: 03/26/20 06:01 Dose: 1 tablet Documented by: Multivitamins (Multivitamins,Therapeutic Tablet) 2 tablet PO BIDCM [facility] Last Admin: 03/26/20 09:44 Dose: 2 tablet Documented by: Nutritional Formula (Nutritional Supplement ([place]ug[place]) Packet) 1 packet PO BIDCM [facility] Last Admin: 03/26/20 09:44 Dose: 1 packet Documented by: Ondansetron HCl (Ondansetron 4 Mg/2 Ml Vial) 4 mg IV Q6H PRN PRN PRN Reason: NAUSEA Oxycodone HCl (Oxycodone 5 Mg Tablet) 10 mg PO Q4H PRN PRN PRN Reason: Pain Score 6-10 Last Admin: 03/26/20 09:50 Dose: 10 mg Documented by: Promethazine HCl (Promethazine 25 Mg Tablet) 25 mg PO Q4H PRN PRN PRN Reason: NAUSEA/VOMITING Sodium Chloride (0.9% Saline Lock 10 Ml Syringe) 10 - 40 ml IV UD PRN PRN Reason: SALINE FLUSH Medical Necessity - Tobacco Use Smoking Status: Never smoker Assessment/Plan All Active Problems (Last Reviewed 03/20/20 @ 16:[address] Tommy West MD) Open wound of left axillary region with complication (Acute) 1. Left axillary hidradenitis. 2. s/p surgical preparation left axilla with excision hidradenitis (63 cm2). Left axillary wound is stable. No active bleeding noted. VAC applied. It has been approved. To be changed three times per week at 150 mmHg continuous suction. Operative cultures are pending. Will continue Minocycline at home. Prealbumin was 25.8. Encourage nutritional supplementation with protein to help the healing process. Encourage range of motion exercises to minimize stiffness. Elevate left arm. Discharge home today. Followup Wound Center Sunday04/05/20. Wrote scripts for Percocet for pain (40 tabs) and for Valium for spasm (30 tabs).
--- NOTE | 2020-03-26 13:00 | PCM.DC ---
You will use the following diet at home:: No restrictions, Other - encourage nutritional supplementation with protein to help the healing process. Discharge Activity: May Shower - on the days the vac is changed., - - elevate left arm. no heavy lifting. May shower in (days): 2 - on the days the vac is changed. Weight Bearing Status: Weight bearing as tolerated Lifting Restrictions: 20 lbs. Keep extremity elevated above heart level: Left Arm Call your doctor if your incision/area has: Continuous Slow Oozing, Sudden Increased Bleeding, Increased Pain/ Swelling, Increased Redness, Foul Smelling Discharge, Swelling at the incision site Call your doctor if you observe: Fever of 101 or Higher, Coldness, Increased Pain, Shortness of breath, Chest pain, Calf discomfort, Uncontrolled pain Suture Line Care: - - vac changes to left axilla three times per week at 150 mmHg continuous suction. Cleanse incision/area with: Soap & Water - may cleanse the wound with soap and water at the time of the vac change., - - may shower on the days the vac is changed. Allergies/Adverse Reactions: Allergies cefazolin [From [facility]] Allergy (Verified 03/25/20 09:18) Rash Medications to take at Discharge Lactobacillus acidoph-L.bulgaricus 1 million cell chewable tablet 3 tab PO TID tab 03/09/20 multivitamin 2 tab PO BID tab 03/09/20 minocycline 100 mg capsule 100 mg PO BID #60 cap 03/20/20 Lymph Tone 25 drp PO DAILY 03/23/20 Stydric Greens 15 drp PO BID 03/23/20 Diazepam [Valium] 5 mg PO 4X/DAY PRN PRN #30 tablet 03/26/20 Oxycodone HCl/Acetaminophen [Percocet 5/325] 1 tablet PO Q4H PRN PRN 7 Days #40 tablet 03/26/20 The following prescriptions were given: Oxycodone HCl/Acetaminophen [Percocet 5/325] 1 tablet PO Q4H PRN PRN 7 Days #40 tablet PRN Reason: Pain Score 6-10 Transmission Status: Received by [address] Diazepam [Valium] 5 mg PO 4X/DAY PRN PRN #30 tablet PRN Reason: Spasms Transmission Status: Received by [address] Primary Care Physician: Paola Crooks [employer], [employer] [Primary Care Provider] - Test Results: Test results from this visit will be discussed in further detail at your follow-up appointment, if applicable. Please Follow Up With: Tommy West MD When: at wound center sunday04/05/20. call [phone] for appt. Proposed Discharge Date: 03/26/20
[2020-03-26 13:04] VITALS: BP 98/60; PULSE 80; RESP 18; TEMP 36.7; O2SAT 95
== END 2020-03-26 14:54 | disposition home health service (06) ==
LOC: SDC 13:32 → MS3 13:32
PROVIDERS: Admitting Provider Surgery; PCP Nurse Practitioner Primary Care; Referring Provider Surgery; Visit Provider Surgery
PROC: (CPT 11450; principal; 2020-03-25 10:30)
DX: L73.2 Hidradenitis suppurativa (principal); Z20.828 Contact with and (suspected) exposure to other viral communicable diseases; K58.9 Irritable bowel syndrome, unspecified; Q90.9 Down syndrome, unspecified; Z79.899 Other long term (current) drug therapy; L72.0 Epidermal cyst; R59.9 Enlarged lymph nodes, unspecified
CPT/HCPCS: 00400; 11450; 36415; 80048; 84134; 85027; 87015; 87070; 87075; 87077; 87102; 87116; 87176; 87205; 87206; 87426; 88305; 88312; 93005; 96365; 96366; 99218; C9803; J7120; G0378; G0379; J2405

== ENCOUNTER 2020-04-12 11:30 | Outpatient (RCR) | payer MEDICAID, SELFPAY ==
[2020-03-25 13:05] VITALS: BMI 33.5
[2020-04-05 13:08] VITALS: BP 122/73; PULSE 97; TEMP 36.6; BMI 33.5
--- NOTE | 2020-04-05 13:27 | PCM.WC.HP ---
(1) Open wound of left axillary region with complication Status: Acute Code(s): S41.102A - Unspecified open wound of left upper arm, initial encounter (2) Left axillary hidradenitis Status: Chronic Code(s): L73.2 - Hidradenitis suppurativa History of Present Illness Date of Service: 04/05/20 Chief Complaint: Left axilla hidradenitis History of Wound: Patient is a 24 year old male with Down's who had drainage from left axilla and had been placed on a course of Minocycline. He has also applied Clindamycin gel. He states he has had I&D procedures in the past. He has been having trouble with hidradenitis for the past year. He denies fever. He denies trauma. He has had intermittent drainage. 03/26/20 - Surgical preparation left axilla with excision hidradenitis (63 cm2). He was discharged on 03/27/20 with the wound VAC at 150 mmHg.Operative cultures positive for Actinomyces neuii and Anaerobic cocci. He was discharged on Doxycycline and Flagyl was added. He denies any fever and his mother states his apetite has been good. Past Medical History Past Medical History: Chronic Problems (Last Reviewed 03/20/20 @ 16:[address] Tommy West MD) Left axillary hidradenitis (Chronic) Past Medical History: History of Down's syndrome. Cardiac surgery as an . Allergies/Adverse Reactions: Allergies cefazolin [From [facility]] Allergy (Verified 04/05/20 13:25) Rash Home Medications: Ambulatory Orders Medication Instructions Recorded Lactobacillus acidoph-L.bulgaricus 3 tab PO TID tab 03/09/20 1 million cell chewable tablet multivitamin 2 tab PO BID tab 03/09/20 minocycline 100 mg capsule 100 mg PO BID #60 cap 03/20/20 Lymph Tone 25 drp PO DAILY 03/23/20 Diazepam [Valium] 5 mg PO 4X/DAY PRN PRN #30 tab 03/26/20 metronidazole 500 mg tablet 500 mg PO Q8H 10 Days #30 tab 03/30/20 Spygriac Greens 15 drp PO BID 04/05/20 Smoking Status: Never smoker Review of Systems Constitutional: Denies: Chills, Fever, Weight Change Eyes: Denies: Pain, Vision Change HEENT: Denies: Difficulty Hearing, Difficulty Swallowing, Sinus Congestion Cardiovascular: Denies: Chest Pain, Palpitations Respiratory: Denies: Cough, Shortness of Breath Gastrointestinal: Reports: - - History of IBS with intermittent episodes of abdominal pain with nausea and diarrhea.. Denies: Abdominal Pain Skin: Reports: Wounds - Left axilla wound is beefy pink. Neurological: Denies: Balance problems, Blurred vision Psychiatric: Denies: Anxiety, Depression Endocrine: Denies: Change in Body Habitus, Heat/ Cold Intolerance Hematologic/ Lymphatic: Denies: Easy Bruising, Easy Bleeding - Physical Exam Vital Signs Temp Pulse BP 97.8 F 97 122/73 H 04/05/20 13:08 04/05/20 13:08 04/05/20 13:08 General: Alert, Oriented x3, Cooperative HEENT: Atraumatic Oral: Moist Mucosa Lungs: Normal air movement Cardiovascular: Regular rate Extremities: Capillary Refill Less than 3 Seconds Skin: Ulcer/ Wound - Left axilla wound is beefy pink. Wound Measurements and Assessment WC - Nurse 1 - General Ulcer Measurement Start: 04/05/20 13:08 Freq: Status: Active Protocol: Activity Type Activity Date Activity User E-Sign Co-Sign Detail Recorded Client Recorded Date Recorded By Document 04/05/20 13:17 TIEN [id number] 04/05/20 13:23 TIEN 04/05/20 13:17 Wound Center Nurse 1 [Ulcer Assessment] #1 Left Axilla -Current Size (cm) - Length 10.6 -Current Size (cm) - Width 4.9 -Current Size (cm) - Depth 0.8 -Total Square Cm 51.94 -Date of Last Picture (Recall this 04/05/20 field) -Photo Taken Yes -Exudate Amt Small -Exudate Type Serosanguineous -Wound Margin Distinct, Outline Attached -Granulation Amt Medium (34-66%) -Granulation Quality Red -Necrosis Amt Small (1-33%) -Necrotic Tissue Type Adherent Slough -Texture (Abbie-wound Skin Appearance) Assessed, Scarring -Moisture (Abbie-wound Skin Appearance No Abnormality, ) Assessed -Color (Abbie-wound Skin Appearance) No Abnormality, Assessed -Temperature (Abbie-wound Skin No Abnormality Appearance) (Pt Warm) -Tenderness on Palpation (Abbie-wound Yes Skin Appearance) -Ulcer Cleansing [place] AND WATER -Anesthetic Used 4% Lidocaine Solution Musculoskeletal: No Tenderness to Palpation of Joints or Extremities Neurological: Cranial nerves II-XII grossly intact Psych/Mental Status: Normal Affect, Appropriate Debridement Note No debridement was completed today Assessment/Plan Active Problems (Last Reviewed 03/20/20 @ 16:[address] Tommy West MD) Open wound of left axillary region with complication (Acute) Left axillary hidradenitis (Chronic) Assessment: 1. Left axillary hidradenitis. 2. s/p surgical preparation left axilla with excision hidradenitis (63 cm2). Plan: Wound care - Wound VAC to 150 mmHg. Home health is involved to help with wound VAC dressing changes. Operative cultures positive for Actinomyces neuii and Anaerobic cocci. He was discharged on Doxycycline and Flagyl was added. Follow up one week. [id number]: [id number] Global Visit
[2020-04-12 11:55] VITALS: BP 143/80; PULSE 79; RESP 16; TEMP 36; BMI 33.5
--- NOTE | 2020-04-12 13:24 | PN.PCM_ITS ---
(1) Open wound of left axillary region with complication Status: Acute Code(s): S41.102A - Unspecified open wound of left upper arm, initial encounter (2) Left axillary hidradenitis Status: Chronic Code(s): L73.2 - Hidradenitis suppurativa Type of Wound Date of Service: 04/12/20 Chief Complaint: Left axilla hidradenitis History of Wound: Patient is a 24 year old male with Down's who had drainage from left axilla and had been placed on a course of Minocycline. He has also applied Clindamycin gel. He states he has had I&D procedures in the past. He has been having trouble with hidradenitis for the past year. He denies fever. He denies trauma. He has had intermittent drainage. 03/26/20 - Surgical preparation left axilla with excision hidradenitis (63 cm2). He was discharged on 03/27/20 with the wound VAC at 150 mmHg.Operative cultures positive for Actinomyces neuii and Anaerobic cocci. He was discharged on Doxycycline and Flagyl was added. He denies any fever and his mother states his apetite has been good. Progress of Wound: Improved. - Physical Exam Vital Signs Temp Pulse Resp BP 96.8 F L 79 16 143/80 H 04/12/20 11:55 04/12/20 11:55 04/12/20 11:55 04/12/20 11:55 General: Alert, Cooperative HEENT: Atraumatic Oral: Moist Mucosa Lungs: Normal air movement Cardiovascular: Regular rate Extremities: Capillary Refill Less than 3 Seconds Skin: Ulcer/ Wound - Left axilla ulcer is beefy pink. Wound Measurements and Assessment WC - Nurse 1 - General Ulcer Measurement Start: 04/05/20 13:08 Freq: Status: Active Protocol: Activity Type Activity Date Activity User E-Sign Co-Sign Detail Recorded Client Recorded Date Recorded By Document 04/12/20 11:55 [facility] [id number] 04/12/20 12:06 [facility] 04/12/20 11:55 Wound Center Nurse 1 [Ulcer Assessment] #1 Left Axilla -Combined with other wound No -Current Size (cm) - Length 10.8 -Current Size (cm) - Width 3.8 -Current Size (cm) - Depth 1 -Total Square Cm 41.04 -Photo Taken No -Epithelialization Small 1-33% -Tunneling No -Undermining/Tunneling No -Circular Undermining No -Exudate Amt Small -Exudate Type Serosanguineous -Wound Margin Distinct, Outline Attached -Granulation Amt Large (67-100%) -Granulation Quality Red -Slough/Fibrin Yes -Necrosis Amt Small (1-33%) -Necrotic Tissue Type Adherent Slough -Texture (Abbie-wound Skin Appearance) Assessed, Scarring -Moisture (Abbie-wound Skin Appearance Assessed ) -Color (Abbie-wound Skin Appearance) Assessed -Temperature (Abbie-wound Skin No Abnormality Appearance) (Pt Warm) -Tenderness on Palpation (Abbie-wound Yes Skin Appearance) -Ulcer Cleansing soapy water -Foul Odor after Cleansing No -Anesthetic Used 4% Lidocaine Solution WALTER - Nurse 2 - General Ulcer CM Notes Start: 04/05/20 13:08 Freq: Status: Active Protocol: Activity Type Activity Date Activity User E-Sign Co-Sign Detail Recorded Client Recorded Date Recorded By Document 04/12/20 12:29 VALDEMAR [id number] 04/12/20 12:32 VALDEMAR 04/12/20 12:29 Wound Center Nurse 2 [Procedure/Treatment] -Time 12:29 -Correct Patient Yes -Correct Side, Site, Position Yes -Correct Procedure Yes -Procedure Performed Yes -Type of Procedure Debridement -Clinical Debridement Subcutaneous -Tissue Removed Subcutaneous -Post Debridement (cm) - Length 10.5 -Post Debridement (cm) - Width 4.5 -Post Debridement (cm) - Depth 0.8 -Total Square (Post) (cm) 47.25 -Area of Debridement (cm) - Length 10.5 -Area of Debridement (cm) - Width 4.5 -Total Square (Area) (cm) 47.25 -Tunneling No -Undermining/Tunneling No -Circular Undermining No -Wound/Ulcer Outcome Not Healed -Ulcer Cleansing Rinsed/ Irrigated with Saline -Foul Odor after Cleansing No -Bioengineered Tissue No -Bleeding Controlled with Pressure -Offloading No -Treatment Response Procedure Tolerated Well -Debridement - Subq, 1st 20sq cm Yes -Debridement, SubQ, ea addt'l 20sq cm 2 or part thereof [See Physician Procedure note for Specifics] Pain Scale: 0-10 Numeric [Pain] -Is Patient Pain Free? Yes - Nurse 3 - General Ulcer D/C NN Start: 04/05/20 13:08 Freq: Status: Active Protocol: Activity Type Activity Date Activity User E-Sign Co-Sign Detail Recorded Client Recorded Date Recorded By Document 04/12/20 12:52 DL [id number] 04/12/20 12:53 DL 04/12/20 12:52 Wound Care Nurse 3 [Wound Dressing] #1 Left Axilla -Ulcer Cleansing Wound Cleanser -Foul Odor after Cleansing No -Negative Pressure Wound Therapy Continue -Setting (mmHg) 150 -Negative Pressure is Continuous -NPWT Application Charge ($) NPWT > 50 sq cm [Post Procedure Tolerated] -Treatment Response Procedure Tolerated Well Pain Scale: 0-10 Numeric [Pain] -Is Patient Pain Free? Yes - Visit Discharge [Visit Discharge Information] -Discharge Condition Stable -Ambulatory Status Ambulatory -Transportation Private Auto Debridement Note Post-Debridement Measurements/Treatment - Nurse 2 - General Ulcer CM Notes Start: 04/05/20 13:08 Freq: Status: Active Protocol: Activity Type Activity Date Activity User E-Sign Co-Sign Detail Recorded Client Recorded Date Recorded By Document 04/05/20 13:34 [id number] 04/05/20 13:38 Document 04/12/20 12:29 [id number] 04/12/20 12:32 04/05/20 04/12/20 13:34 12:29 Wound Center Nurse 2 #1 Left Axilla -Time 12:29 -Correct Patient No Yes -Correct Side, Site, Position No Yes -Correct Procedure No Yes -Procedure Performed No Yes -Type of Procedure Debridement -Clinical Debridement Subcutaneous -Tissue Removed Subcutaneous -Post Debridement (cm) - Length 10.5 -Post Debridement (cm) - Width 4.5 -Post Debridement (cm) - Depth 0.8 -Total Square (Post) (cm) 47.25 -Area of Debridement (cm) - Length 10.5 -Area of Debridement (cm) - Width 4.5 -Total Square (Area) (cm) 47.25 -Tunneling No No -Undermining/Tunneling No No -Circular Undermining No No -Wound/Ulcer Outcome Not Healed Not Healed -Ulcer Cleansing Rinsed/ Rinsed/ Irrigated with Irrigated with Saline Saline -Foul Odor after Cleansing No No -Bioengineered Tissue No No -Bleeding Controlled with Pressure Pressure -Offloading No No -Treatment Response Procedure Procedure Tolerated Well Tolerated Well -Debridement - Subq, 1st 20sq cm No Yes -Debridement, SubQ, ea addt'l 20sq cm 2 or part thereof Pain Scale: 0-10 Numeric Is Patient Pain Free? Yes Yes - Nurse 3 - General Ulcer D/C NN Start: 04/05/20 13:08 Freq: Status: Active Protocol: Activity Type Activity Date Activity User E-Sign Co-Sign Detail Recorded Client Recorded Date Recorded By Document 04/12/20 12:52 DL [id number] 04/12/20 12:53 DL 04/12/20 12:52 Wound Care Nurse 3 #1 Left Axilla -Ulcer Cleansing Wound Cleanser -Foul Odor after Cleansing No -Negative Pressure Wound Therapy Continue -Setting (mmHg) 150 -Negative Pressure is Continuous -NPWT Application Charge ($) NPWT > 50 sq cm Treatment Response Procedure Tolerated Well Pain Scale: 0-10 Numeric Is Patient Pain Free? Yes WC - Visit Discharge Discharge Condition Stable Ambulatory Status Ambulatory Transportation Private Auto Wound debrided: Axilla wound Laterality: Left Type of Debridement: Excisional debridement Anesthesia Used: 5% Lidocaine Gel Depth: Down to and including healthy tissue, in the subcutaneous layer Percentage of wound debrided: 100 Instrument Used: 5mm curette Tissue Removed: Subcutaneous tissue and slough Severity: Fat Layer Exposed Amount of bleeding with debridement: Mild Bleeding Controlled with: Pressure Patient tolerated procedure well Assessment/Plan Active Problems (Last Reviewed 03/20/20 @ 16:[address] Tommy West MD) Open wound of left axillary region with complication (Acute) Left axillary hidradenitis (Chronic) Assessment: 1. Left axillary hidradenitis. 2. s/p surgical preparation left axilla with excision hidradenitis (63 cm2). Plan: Wound care - Wound VAC to 150 mmHg. Home health is involved to help with wound VAC dressing changes. Operative cultures positive for Actinomyces neuii and Anaerobic cocci. He was discharged on Doxycycline and Flagyl was added. Follow up one week. [id number]: [id number] Global Visit
== END 2020-04-15 23:59 ==
LOC: WC 11:30
PROVIDERS: PCP Nurse Practitioner Primary Care; Referring Provider Surgery; Visit Provider Surgery
DX: L73.2 Hidradenitis suppurativa (principal); L98.492 Non-pressure chronic ulcer of skin of other sites with fat layer exposed; Q90.9 Down syndrome, unspecified; K58.9 Irritable bowel syndrome, unspecified; Z79.899 Other long term (current) drug therapy
CPT/HCPCS: 11042; 11045; 97606; 99213; G0463

== ENCOUNTER 2020-05-10 13:30 | Outpatient (RCR) | payer MEDICAID, SELFPAY ==
[2020-04-16 00:40] VITALS: BP 143/80; PULSE 79; RESP 16; TEMP 36
[2020-04-19 14:06] VITALS: BP 118/64; PULSE 94; TEMP 36; BMI 33.5
--- NOTE | 2020-04-19 14:41 | PCM.WC.PN ---
(1) Open wound of left axillary region with complication Status: Acute Code(s): S41.102A - Unspecified open wound of left upper arm, initial encounter (2) Left axillary hidradenitis Status: Chronic Code(s): L73.2 - Hidradenitis suppurativa Type of Wound Date of Service: 04/19/20 Chief Complaint: Left axilla hidradenitis History of Wound: Patient is a 24 year old male with Down's who had drainage from left axilla and had been placed on a course of Minocycline. He has also applied Clindamycin gel. He states he has had I&D procedures in the past. He has been having trouble with hidradenitis for the past year. He denies fever. He denies trauma. He has had intermittent drainage. 03/26/20 - Surgical preparation left axilla with excision hidradenitis (63 cm2). He was discharged on 03/27/20 with the wound VAC at 150 mmHg.Operative cultures positive for Actinomyces neuii and Anaerobic cocci. He was discharged on Doxycycline and Flagyl was added. He denies any fever and his mother states his apetite has been good. Progress of Wound: Left axilla wound is improved. - Physical Exam Vital Signs Temp Pulse Resp BP 96.8 F L 94 16 118/64 04/19/20 14:06 04/19/20 14:06 04/16/20 00:40 04/19/20 14:06 General: Alert, Cooperative HEENT: Atraumatic Oral: Moist Mucosa Neck: Supple Lungs: Normal air movement Cardiovascular: Regular rate Extremities: Capillary Refill Less than 3 Seconds Skin: Ulcer/ Wound - Left axilla wound is beefy pink. Wound Measurements and Assessment WC - Nurse 1 - General Ulcer Measurement Start: 04/19/20 14:05 Freq: Status: Active Protocol: Activity Type Activity Date Activity User E-Sign Co-Sign Detail Recorded Client Recorded Date Recorded By Document 04/19/20 14:06 TIEN [id number] 04/19/20 14:12 TIEN 04/19/20 14:06 Wound Center Nurse 1 [Ulcer Assessment] #1 Left Axilla -Current Size (cm) - Length 9.5 -Current Size (cm) - Width 2.9 -Current Size (cm) - Depth 0.2 -Total Square Cm 27.55 -Exudate Amt None Present -Wound Margin Distinct, Outline Attached -Granulation Amt Large (67-100%) -Granulation Quality Red -Necrosis Amt None Present (0 %) -Texture (Abbie-wound Skin Appearance) Assessed, Scarring -Moisture (Abbie-wound Skin Appearance No Abnormality, ) Assessed -Color (Abbie-wound Skin Appearance) No Abnormality, Assessed -Temperature (Abbie-wound Skin No Abnormality Appearance) (Pt Warm) -Tenderness on Palpation (Abbie-wound No Skin Appearance) -Ulcer Cleansing Rinsed/ Irrigated with Saline -Foul Odor after Cleansing No -Anesthetic Used 4% Lidocaine Solution Musculoskeletal: No Tenderness to Palpation of Joints or Extremities Neurological: Cranial nerves II-XII grossly intact Psych/Mental Status: Normal Affect, Appropriate Debridement Note Wound debrided: axilla wound Laterality: Left Type of Debridement: Excisional debridement Anesthesia Used: 5% Lidocaine Gel Depth: Down to and including healthy tissue, in the subcutaneous layer Percentage of wound debrided: 100 Instrument Used: 7mm curette Tissue Removed: Subcutaneous tissue and slough Severity: Fat Layer Exposed Amount of bleeding with debridement: Mild Bleeding Controlled with: Pressure Patient tolerated procedure well Assessment/Plan Assessment: 1. Left axillary hidradenitis. 2. s/p surgical preparation left axilla with excision hidradenitis (63 cm2). Plan: Wound care - Will take a wound VAC holiday this week per patient request. Will do daily Dakin's moistened gauze dressing changes. Home health is involved to help with wound VAC dressing changes. Operative cultures positive for Actinomyces neuii and Anaerobic cocci. He was discharged on Doxycycline, he completed the Flagyl. Follow up one week. [id number]: [id number] Global Visit
[2020-04-26 13:43] VITALS: BP 141/64; PULSE 88; RESP 18; TEMP 36.6; BMI 33.5
--- NOTE | 2020-04-26 14:33 | PCM.WC.PN ---
(1) Open wound of left axillary region with complication Status: Acute Code(s): S41.102A - Unspecified open wound of left upper arm, initial encounter (2) Left axillary hidradenitis Status: Chronic Code(s): L73.2 - Hidradenitis suppurativa Type of Wound Date of Service: 04/26/20 Chief Complaint: Left axilla hidradenitis History of Wound: Patient is a 24 year old male with Down's who had drainage from left axilla and had been placed on a course of Minocycline. He has also applied Clindamycin gel. He states he has had I&D procedures in the past. He has been having trouble with hidradenitis for the past year. He denies fever. He denies trauma. He has had intermittent drainage. 03/26/20 - Surgical preparation left axilla with excision hidradenitis (63 cm2). He was discharged on 03/27/20 with the wound VAC at 150 mmHg. We took a wound VAC holiday last week per patient request. Wound care has been Dakin's moistened gauzed dressings topped with ABD daily. Will Discontinue the VAC and continue with Dakin's dressing changes. Operative cultures positive for Actinomyces neuii and Anaerobic cocci. He was discharged on Doxycycline and Flagyl was added. He denies any fever and his mother states his apetite has been good. Progress of Wound: Left axilla wound is improved. - Physical Exam Vital Signs Temp Pulse Resp BP 97.8 F 88 18 141/64 H 04/26/20 13:43 04/26/20 13:43 04/26/20 13:43 04/26/20 13:43 General: Alert HEENT: Atraumatic Oral: Moist Mucosa Lungs: Normal air movement Cardiovascular: Regular rate Extremities: Capillary Refill Less than 3 Seconds Skin: Ulcer/ Wound - Left axilla wound is beefy pink. Periwound looks good. Good range of motion of left shoulder. Wound Measurements and Assessment WC - Nurse 1 - General Ulcer Measurement Start: 04/19/20 14:05 Freq: Status: Active Protocol: Activity Type Activity Date Activity User E-Sign Co-Sign Detail Recorded Client Recorded Date Recorded By Document 04/26/20 13:43 DL [id number] 04/26/20 13:49 DL 04/26/20 13:43 Wound Center Nurse 1 [Ulcer Assessment] #1 Left Axilla -Current Size (cm) - Length 8.5 -Current Size (cm) - Width 2.8 -Current Size (cm) - Depth 0.1 -Total Square Cm 23.80 -Photo Taken No -Exudate Amt Small -Wound Margin Distinct, Outline Attached -Granulation Amt Large (67-100%) -Granulation Quality Red -Necrosis Amt None Present (0 %) -Structure Exposed N/A -Texture (Abbie-wound Skin Appearance) Scarring -Moisture (Abbie-wound Skin Appearance Dry/Scaly ) -Color (Abbie-wound Skin Appearance) No Abnormality -Temperature (Abbie-wound Skin No Abnormality Appearance) (Pt Warm) -Tenderness on Palpation (Abbie-wound No Skin Appearance) -Ulcer Cleansing Rinsed/ Irrigated with Saline -Foul Odor after Cleansing No -Anesthetic Used 4% Lidocaine Solution WC - Nurse 2 - General Ulcer CM Notes Start: 04/19/20 14:05 Freq: Status: Active Protocol: Activity Type Activity Date Activity User E-Sign Co-Sign Detail Recorded Client Recorded Date Recorded By Document 04/26/20 14:03 [id number] 04/26/20 14:04 VALDEMAR 04/26/20 14:03 Wound Center Nurse 2 [Procedure/Treatment] -Correct Patient Yes -Correct Side, Site, Position Yes -Correct Procedure Yes -Procedure Performed Yes -Type of Procedure Debridement -Clinical Debridement Subcutaneous -Tissue Removed Subcutaneous -Post Debridement (cm) - Length 8.6 -Post Debridement (cm) - Width 2.5 -Post Debridement (cm) - Depth 0.2 -Total Square (Post) (cm) 21.50 -Area of Debridement (cm) - Length 8.6 -Area of Debridement (cm) - Width 2.5 -Total Square (Area) (cm) 21.50 -Tunneling No -Undermining/Tunneling No -Circular Undermining No -Wound/Ulcer Outcome Not Healed -Ulcer Cleansing Rinsed/ Irrigated with Saline -Foul Odor after Cleansing No -Bioengineered Tissue No -Bleeding Controlled with Pressure -Offloading No -Treatment Response Procedure Tolerated Well -Debridement - Subq, 1st 20sq cm Yes -Debridement, SubQ, ea addt'l 20sq cm 1 or part thereof [See Physician Procedure note for Specifics] Pain Scale: 0-10 Numeric [Pain] -Is Patient Pain Free? Yes - Nurse 3 - General Ulcer D/C NN Start: 04/19/20 14:05 Freq: Status: Active Protocol: Activity Type Activity Date Activity User E-Sign Co-Sign Detail Recorded Client Recorded Date Recorded By Document 04/26/20 14:13 [facility] [id number] 04/26/20 14:14 [facility] 04/26/20 14:13 Wound Care Nurse 3 [Wound Dressing] #1 Left Axilla -Ulcer Cleansing Rinsed/ Irrigated with Saline -Foul Odor after Cleansing No -Primary Dressing Applied Other -Other Dressing moist to dry -Primary Dressing Covered/Secured Dry Gauze, with Secured with Tape [Post Procedure Tolerated] -Treatment Response Procedure Tolerated Well Pain Scale: 0-10 Numeric [Pain] -Is Patient Pain Free? Yes - Visit Discharge [Visit Discharge Information] -Discharge Condition Stable -Ambulatory Status Ambulatory -Transportation Private Auto -Accompanied by mom [Facility Notification] -Facility Type Home Health Musculoskeletal: No Tenderness to Palpation of Joints or Extremities Neurological: Cranial nerves II-XII grossly intact Psych/Mental Status: Normal Affect, Appropriate Debridement Note Post-Debridement Measurements/Treatment - Nurse 2 - General Ulcer CM Notes Start: 04/19/20 14:05 Freq: Status: Active Protocol: Activity Type Activity Date Activity User E-Sign Co-Sign Detail Recorded Client Recorded Date Recorded By Document 04/19/20 15:35 PL [id number] 04/19/20 15:36 Document 04/26/20 14:03 [id number] 04/26/20 14:04 04/19/20 04/26/20 15:35 14:03 Wound Center Nurse 2 #1 Left Axilla -Time 14:25 -Correct Patient Yes Yes -Correct Side, Site, Position Yes Yes -Correct Procedure Yes Yes -Procedure Performed Yes Yes -Type of Procedure Debridement Debridement -Clinical Debridement Subcutaneous Subcutaneous -Tissue Removed Subcutaneous Subcutaneous -Post Debridement (cm) - Length 9.5 8.6 -Post Debridement (cm) - Width 3.5 2.5 -Post Debridement (cm) - Depth 0.2 0.2 -Total Square (Post) (cm) 33.25 21.50 -Area of Debridement (cm) - Length 9.5 8.6 -Area of Debridement (cm) - Width 3.5 2.5 -Total Square (Area) (cm) 33.25 21.50 -Tunneling No No -Undermining/Tunneling No No -Circular Undermining No No -Wound/Ulcer Outcome Not Healed Not Healed -Ulcer Cleansing Rinsed/ Rinsed/ Irrigated with Irrigated with Saline Saline -Foul Odor after Cleansing No No -Bioengineered Tissue No No -Bleeding Controlled with Pressure -Offloading No -Treatment Response Procedure Tolerated Well -Debridement - Subq, 1st 20sq cm Yes Yes -Debridement, SubQ, ea addt'l 20sq cm 1 1 or part thereof Pain Scale: 0-10 Numeric Is Patient Pain Free? Yes Yes - Nurse 3 - General Ulcer D/C NN Start: 04/19/20 14:05 Freq: Status: Active Protocol: Activity Type Activity Date Activity User E-Sign Co-Sign Detail Recorded Client Recorded Date Recorded By Document 04/19/20 14:42 DL [id number] 04/19/20 14:43 DL Document 04/26/20 14:13 [facility] [id number] 04/26/20 14:14 [facility] 04/19/20 04/26/20 14:42 14:13 Wound Care Nurse 3 #1 Left Axilla -Ulcer Cleansing Rinsed/ Rinsed/ Irrigated with Irrigated with Saline Saline -Foul Odor after Cleansing No No -Primary Dressing Applied Other -Other Dressing wet to dry/ moist to dry dakins -Primary Dressing Covered/Secured with Dry Gauze & Dry Gauze, Roll Gauze, Secured with Secured with Tape Tape Treatment Response Procedure Procedure Tolerated Well Tolerated Well Pain Scale: 0-10 Numeric Is Patient Pain Free? Yes Yes - Visit Discharge Discharge Condition Stable Stable Ambulatory Status Ambulatory Ambulatory Transportation Private Auto Private [place] [facility] [place] Health Wound debrided: Axilla wound Laterality: Left Type of Debridement: Excisional debridement Anesthesia Used: 5% Lidocaine Gel Depth: Down to and including healthy tissue, in the subcutaneous layer Percentage of wound debrided: 100 Instrument Used: 5mm curette Tissue Removed: Subcutaneous tissue and slough Severity: Fat Layer Exposed Amount of bleeding with debridement: Mild Bleeding Controlled with: Pressure Patient tolerated procedure well Assessment/Plan Active Problems (Last Reviewed 03/20/20 @ 16:[address] Tommy West MD) Open wound of left axillary region with complication (Acute) Left axillary hidradenitis (Chronic) Assessment: 1. Left axillary hidradenitis. 2. s/p surgical preparation left axilla with excision hidradenitis (63 cm2). Plan: Wound care - Continue daily Dakin's moistened gauze dressing changes. Will discontinue the VAC. Home health is involved to help with wound VAC dressing changes. Operative cultures positive for Actinomyces neuii and Anaerobic cocci. He was discharged on Doxycycline, he completed the Flagyl. Follow up two weeks. [id number]: [id number] Global Visit
[2020-05-10 14:01] VITALS: BP 148/88; PULSE 86; TEMP 35.7; BMI 33.5
--- NOTE | 2020-05-10 14:25 | PN.PCM_ITS ---
(1) Skin ulcer of axilla with fat layer exposed Status: Chronic Code(s): L98.492 - Non-pressure chronic ulcer of skin of other sites with fat layer exposed (2) Left axillary hidradenitis Status: Chronic Code(s): L73.2 - Hidradenitis suppurativa Type of Wound Date of Service: 05/10/20 Chief Complaint: Left axilla hidradenitis History of Wound: Patient is a 24 year old male with Down's who had drainage from left axilla and had been placed on a course of Minocycline. He has also applied Clindamycin gel. He states he has had I&D procedures in the past. He has been having trouble with hidradenitis for the past year. He denies fever. He denies trauma. He has had intermittent drainage. 03/26/20 - Surgical preparation left axilla with excision hidradenitis (63 cm2). He was discharged on 03/27/20 with the wound VAC at 150 mmHg. Wound care - Stop Dakin's moistened gauzed dressings and start Henrietta daily. Operative cultures positive for Actinomyces neuii and Anaerobic cocci. He was discharged on Doxycycline. Completed the Flagyl was added. He denies any fever and his mother states his apetite has been good. Progress of Wound: Left axilla wound is improved. - Physical Exam Vital Signs Temp Pulse Resp BP 96.3 F L 86 18 148/88 H 05/10/20 14:01 05/10/20 14:01 04/26/20 13:43 05/10/20 14:01 General: Alert, Oriented x3, Cooperative HEENT: Atraumatic Oral: Moist Mucosa Lungs: Normal air movement Cardiovascular: Regular rate Extremities: No edema, Capillary Refill Less than 3 Seconds Skin: Ulcer/ Wound - Left axilla ulcer is beefy pink. There is some hypergranulation that is present today. Wound Measurements and Assessment WC - Nurse 1 - General Ulcer Measurement Start: 04/19/20 14:05 Freq: Status: Active Protocol: Activity Type Activity Date Activity User E-Sign Co-Sign Detail Recorded Client Recorded Date Recorded By Document 05/10/20 14:01 TIEN [id number] 05/10/20 14:02 TIEN 05/10/20 14:01 Wound Center Nurse 1 [Ulcer Assessment] #1 Left Axilla -Current Size (cm) - Length 2.6 -Current Size (cm) - Width 6 -Current Size (cm) - Depth 0.2 -Total Square Cm 15.6 -Exudate Amt Medium -Exudate Type Serosanguineous -Wound Margin Distinct, Outline Attached -Granulation Amt Large (67-100%) -Granulation Quality Red -Necrosis Amt None Present (0 %) -Texture (Abbie-wound Skin Appearance) Assessed, Scarring -Moisture (Abbie-wound Skin Appearance No Abnormality, ) Assessed -Color (Abbie-wound Skin Appearance) No Abnormality, Assessed -Temperature (Abbie-wound Skin No Abnormality Appearance) (Pt Warm) -Tenderness on Palpation (Abbie-wound No Skin Appearance) -Ulcer Cleansing Rinsed/ Irrigated with Saline -Foul Odor after Cleansing No -Anesthetic Used 4% Lidocaine Solution WALTER - Nurse 2 - General Ulcer CM Notes Start: 04/19/20 14:05 Freq: Status: Active Protocol: Activity Type Activity Date Activity User E-Sign Co-Sign Detail Recorded Client Recorded Date Recorded By Document 05/10/20 14:06 VALDEMAR [id number] 05/10/20 14:12 VALDEMAR 05/10/20 14:06 Wound Center Nurse 2 [Procedure/Treatment] -Time 14:10 -Correct Patient Yes -Correct Side, Site, Position Yes -Correct Procedure Yes -Procedure Performed Yes -Type of Procedure Debridement -Clinical Debridement Subcutaneous -Tissue Removed Subcutaneous -Post Debridement (cm) - Length 6 -Post Debridement (cm) - Width 1.5 -Post Debridement (cm) - Depth 0.2 -Total Square (Post) (cm) 9.0 -Area of Debridement (cm) - Length 6 -Area of Debridement (cm) - Width 1.5 -Total Square (Area) (cm) 9.0 -Tunneling No -Undermining/Tunneling No -Circular Undermining No -Wound/Ulcer Outcome Not Healed -Ulcer Cleansing Rinsed/ Irrigated with Saline -Foul Odor after Cleansing No -Bioengineered Tissue No -Bleeding Controlled with Pressure -Offloading No -Treatment Response Procedure Tolerated Well -Debridement - Subq, 1st 20sq cm Yes [See Physician Procedure note for Specifics] Pain Scale: 0-10 Numeric [Pain] -Is Patient Pain Free? Yes WALTER - Nurse 3 - General Ulcer D/C NN Start: 04/19/20 14:05 Freq: Status: Active Protocol: Activity Type Activity Date Activity User E-Sign Co-Sign Detail Recorded Client Recorded Date Recorded By Document 05/10/20 14:16 [id number] 05/10/20 14:17 05/10/20 14:16 Wound Care Nurse 3 [Wound Dressing] #1 Left Axilla -Ulcer Cleansing Rinsed/ Irrigated with Saline -Foul Odor after Cleansing No -Primary Dressing Applied Promogran Henrietta Matter -Primary Dressing Covered/Secured Dry Gauze, with Secured with Tape -Promogran Henrietta Matter 1 Pain Scale: 0-10 Numeric [Pain] -Is Patient Pain Free? Yes WC - Visit Discharge [Visit Discharge Information] -Discharge Condition Stable -Ambulatory Status Ambulatory -Transportation Private Auto -Accompanied by MOM -Medication Reconcilliation completed Yes & provided to patient/care provider -Clinical Summary of Care Provided Yes Musculoskeletal: No Tenderness to Palpation of Joints or Extremities Neurological: Cranial nerves II-XII grossly intact Psych/Mental Status: Normal Affect, Appropriate Debridement Note Post-Debridement Measurements/Treatment - Nurse 2 - General Ulcer CM Notes Start: 04/19/20 14:05 Freq: Status: Active Protocol: Activity Type Activity Date Activity User E-Sign Co-Sign Detail Recorded Client Recorded Date Recorded By Document 04/19/20 15:35 [id number] 04/19/20 15:36 Document 04/26/20 14:03 [id number] 04/26/20 14:04 Document 05/10/20 14:06 [id number] 05/10/20 14:12 04/19/20 04/26/20 05/10/20 15:35 14:03 14:06 Wound Center Nurse 2 #1 Left Axilla -Time 14:25 14:10 -Correct Patient Yes Yes Yes -Correct Side, Site, Position Yes Yes Yes -Correct Procedure Yes Yes Yes -Procedure Performed Yes Yes Yes -Type of Procedure Debridement Debridement Debridement -Clinical Debridement Subcutaneous Subcutaneous Subcutaneous -Tissue Removed Subcutaneous Subcutaneous Subcutaneous -Post Debridement (cm) - Length 9.5 8.6 6 -Post Debridement (cm) - Width 3.5 2.5 1.5 -Post Debridement (cm) - Depth 0.2 0.2 0.2 -Total Square (Post) (cm) 33.25 21.50 9.0 -Area of Debridement (cm) - Length 9.5 8.6 6 -Area of Debridement (cm) - Width 3.5 2.5 1.5 -Total Square (Area) (cm) 33.25 21.50 9.0 -Tunneling No No No -Undermining/Tunneling No No No -Circular Undermining No No No -Wound/Ulcer Outcome Not Healed Not Healed Not Healed -Ulcer Cleansing Rinsed/ Rinsed/ Rinsed/ Irrigated with Irrigated with Irrigated with Saline Saline Saline -Foul Odor after Cleansing No No No -Bioengineered Tissue No No No -Bleeding Controlled with Pressure Pressure -Offloading No No -Treatment Response Procedure Procedure Tolerated Well Tolerated Well -Debridement - Subq, 1st 20sq cm Yes Yes Yes -Debridement, SubQ, ea addt'l 20sq cm 1 1 or part thereof Pain Scale: 0-10 Numeric Is Patient Pain Free? Yes Yes Yes - Nurse 3 - General Ulcer D/C NN Start: 04/19/20 14:05 Freq: Status: Active Protocol: Activity Type Activity Date Activity User E-Sign Co-Sign Detail Recorded Client Recorded Date Recorded By Document 04/19/20 14:42 DL [id number] 04/19/20 14:43 DL Document 04/26/20 14:13 [facility] [id number] 04/26/20 14:14 [facility] Document 05/10/20 14:16 [id number] 05/10/20 14:17 04/19/20 04/26/20 05/10/20 14:42 14:13 14:16 Wound Care Nurse 3 #1 Left Axilla -Ulcer Cleansing Rinsed/ Rinsed/ Rinsed/ Irrigated with Irrigated with Irrigated with Saline Saline Saline -Foul Odor after Cleansing No No No -Primary Dressing Applied Other Promogran Henrietta Matter -Other Dressing wet to dry/ moist to dry dakins -Primary Dressing Covered/Secured with Dry Gauze & Dry Gauze, Dry Gauze, Roll Gauze, Secured with Secured with Secured with Tape Tape Tape -Promogran Henrietta Matter 1 Treatment Response Procedure Procedure Tolerated Well Tolerated Well Pain Scale: 0-10 Numeric Is Patient Pain Free? Yes Yes Yes - Visit Discharge Discharge Condition Stable Stable Stable Ambulatory Status Ambulatory Ambulatory Ambulatory Transportation Private Auto Private Auto Private Auto Accompanied by mom MOM Medication Reconcilliation completed & Yes provided to patient/care provider Clinical Summary of Care Provided Yes Facility Type Home Health Wound debrided: axilla ulcer Laterality: Left Type of Debridement: Excisional debridement Anesthesia Used: 5% Lidocaine Gel Depth: Down to and including healthy tissue, in the subcutaneous layer Percentage of wound debrided: 100 Instrument Used: 5mm curette Tissue Removed: Subcutaneous tissue and slough, increased biofilm this week. Severity: Fat Layer Exposed Amount of bleeding with debridement: Moderate Bleeding Controlled with: Pressure, Compression and gauze Patient tolerated procedure well Assessment/Plan Active Problems (Last Reviewed 03/20/20 @ 16:[address] Tommy West MD) Open wound of left axillary region with complication (Acute) Left axillary hidradenitis (Chronic) Assessment: 1. Left axillary hidradenitis. 2. s/p surgical preparation left axilla with excision hidradenitis (63 cm2). Plan: Wound care - Stop Dakin's moistened gauze dressing and start daily Henrietta dressing changes. Operative cultures positive for Actinomyces neuii and Anaerobic cocci. He was discharged on Doxycycline, he completed the Flagyl. Follow up one week. 111xxx-[id number]: [id number] Global Visit
== END 2020-05-16 23:59 ==
LOC: WC 13:30
PROVIDERS: PCP Nurse Practitioner Primary Care; Referring Provider Surgery; Visit Provider Surgery
DX: L73.2 Hidradenitis suppurativa (principal); L98.492 Non-pressure chronic ulcer of skin of other sites with fat layer exposed; Q90.9 Down syndrome, unspecified; Z79.899 Other long term (current) drug therapy
CPT/HCPCS: 11042; 11045

== ENCOUNTER 2020-06-07 14:00 | Outpatient (RCR) | payer MEDICAID, SELFPAY ==
[2020-05-17 00:35] VITALS: BP 148/88; PULSE 86; RESP 18; TEMP 35.7
[2020-05-17 13:53] VITALS: BP 122/70; PULSE 81; RESP 18; TEMP 36.4; BMI 33.5
--- NOTE | 2020-05-17 14:35 | PN.PCM_ITS ---
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 He has also applied Clindamycin gel. He states he has had I&D procedures in the past. He has been having trouble with hidradenitis for the past year. He denies fever. He denies trauma. He has had intermittent drainage. 03/26/20 - Surgical preparation left axilla with excision hidradenitis (63 cm2). He was discharged on 03/27/20 with the wound VAC at 150 mmHg. Wound care - Henrietta covered by gauze daily. Operative cultures positive for Actinomyces neuii and Anaerobic cocci. He was discharged on Doxycycline. Completed the Flagyl was added. He denies any fever and his mother states his apetite has been good. Progress of Wound: Left axilla wound is improved. - Physical Exam Vital Signs Temp Pulse Resp BP 97.6 F L 81 18 122/70 H 05/17/20 13:53 05/17/20 13:53 05/17/20 13:53 05/17/20 13:53 General: Alert, Oriented x3, Cooperative HEENT: Atraumatic Oral: Moist Mucosa Lungs: Normal air movement Cardiovascular: Regular rate Abdomen: Soft Extremities: No edema, Capillary Refill Less than 3 Seconds Skin: Ulcer/ Wound - Left axilla ulcer is beefy pink and improving is size. Wound Measurements and Assessment WC - Nurse 1 - General Ulcer Measurement Start: 05/17/20 13:53 Freq: Status: Active Protocol: Activity Type Activity Date Activity User E-Sign Co-Sign Detail Recorded Client Recorded Date Recorded By Document 05/17/20 13:53 DL [id number] 05/17/20 13:58 DL 05/17/20 13:53 Wound Center Nurse 1 [Ulcer Assessment] #1 Left Axilla -Current Size (cm) - Length 0.7 -Current Size (cm) - Width 2.8 -Current Size (cm) - Depth 0.1 -Total Square Cm 1.96 -Photo Taken No -Exudate Amt Small -Exudate Type Sanguineous -Wound Margin Distinct, Outline Attached -Granulation Amt Large (67-100%) -Granulation Quality [place],Red -Necrosis Amt None Present (0 %) -Structure Exposed N/A -Texture (Abbie-wound Skin Appearance) Scarring -Moisture (Abbie-wound Skin Appearance No Abnormality ) -Color (Abbie-wound Skin Appearance) No Abnormality -Temperature (Abbie-wound Skin No Abnormality Appearance) (Pt Warm) -Ulcer Cleansing Rinsed/ Irrigated with Saline -Foul Odor after Cleansing No -Anesthetic Used 5% Lidocaine Gel WALTER - Nurse 2 - General Ulcer CM Notes Start: 05/17/20 13:53 Freq: Status: Active Protocol: Activity Type Activity Date Activity User E-Sign Co-Sign Detail Recorded Client Recorded Date Recorded By Document 05/17/20 14:07 VALDEMAR [id number] 05/17/20 14:09 VALDEMAR 05/17/20 14:07 Wound Center Nurse 2 [Procedure/Treatment] -Time 14:08 -Correct Patient Yes -Correct Side, Site, Position Yes -Correct Procedure Yes -Procedure Performed Yes -Type of Procedure Debridement -Clinical Debridement Subcutaneous -Tissue Removed Subcutaneous -Post Debridement (cm) - Length 4.2 -Post Debridement (cm) - Width 1.0 -Post Debridement (cm) - Depth 0.1 -Total Square (Post) (cm) 4.20 -Area of Debridement (cm) - Length 4.2 -Area of Debridement (cm) - Width 1.0 -Total Square (Area) (cm) 4.20 -Tunneling No -Undermining/Tunneling No -Circular Undermining No -Wound/Ulcer Outcome Not Healed -Ulcer Cleansing Rinsed/ Irrigated with Saline -Foul Odor after Cleansing No -Bioengineered Tissue No -Bleeding Controlled with Pressure -Offloading No -Treatment Response Procedure Tolerated Well -Debridement - Subq, 1st 20sq cm Yes [See Physician Procedure note for Specifics] Pain Scale: 0-10 Numeric [Pain] -Is Patient Pain Free? Yes WALTER - Nurse 3 - General Ulcer D/C NN Start: 05/17/20 13:53 Freq: Status: Active Protocol: Activity Type Activity Date Activity User E-Sign Co-Sign Detail Recorded Client Recorded Date Recorded By Document 05/17/20 14:11 [id number] 05/17/20 14:12 VALDEMAR 05/17/20 14:11 Wound Care Nurse 3 [Wound Dressing] #1 Left Axilla -Ulcer Cleansing Rinsed/ Irrigated with Saline -Foul Odor after Cleansing No -Primary Dressing Applied Promogran [place] Matter -Primary Dressing Covered/Secured Dry Gauze, with Secured with Tape -Promogran [place] Matter 1 Pain Scale: 0-10 Numeric [Pain] -Is Patient Pain Free? Yes WC - Visit Discharge [Visit Discharge Information] -Discharge Condition Stable -Ambulatory Status Ambulatory -Transportation Private Auto -Accompanied by mother -Medication Reconcilliation completed Yes & provided to patient/care provider -Clinical Summary of Care Provided Yes Musculoskeletal: No Tenderness to Palpation of Joints or Extremities Neurological: Cranial nerves II-XII grossly intact Psych/Mental Status: Normal Affect, Appropriate Debridement Note Post-Debridement Measurements/Treatment - Nurse 2 - General Ulcer CM Notes Start: 05/17/20 13:53 Freq: Status: Active Protocol: Activity Type Activity Date Activity User E-Sign Co-Sign Detail Recorded Client Recorded Date Recorded By Document 05/17/20 14:07 [id number] 05/17/20 14:09 05/17/20 14:07 Wound Center Nurse 2 #1 Left Axilla -Time 14:08 -Correct Patient Yes -Correct Side, Site, Position Yes -Correct Procedure Yes -Procedure Performed Yes -Type of Procedure Debridement -Clinical Debridement Subcutaneous -Tissue Removed Subcutaneous -Post Debridement (cm) - Length 4.2 -Post Debridement (cm) - Width 1.0 -Post Debridement (cm) - Depth 0.1 -Total Square (Post) (cm) 4.20 -Area of Debridement (cm) - Length 4.2 -Area of Debridement (cm) - Width 1.0 -Total Square (Area) (cm) 4.20 -Tunneling No -Undermining/Tunneling No -Circular Undermining No -Wound/Ulcer Outcome Not Healed -Ulcer Cleansing Rinsed/ Irrigated with Saline -Foul Odor after Cleansing No -Bioengineered Tissue No -Bleeding Controlled with Pressure -Offloading No -Treatment Response Procedure Tolerated Well -Debridement - Subq, 1st 20sq cm Yes Pain Scale: 0-10 Numeric Is Patient Pain Free? Yes - Nurse 3 - General Ulcer D/C NN Start: 05/17/20 13:53 Freq: Status: Active Protocol: Activity Type Activity Date Activity User E-Sign Co-Sign Detail Recorded Client Recorded Date Recorded By Document 05/17/20 14:11 VALDEMAR [id number] 05/17/20 14:12 VALDEMAR 05/17/20 14:11 Wound Care Nurse 3 #1 Left Axilla -Ulcer Cleansing Rinsed/ Irrigated with Saline -Foul Odor after Cleansing No -Primary Dressing Applied Promogran [place] Matter -Primary Dressing Covered/Secured with Dry Gauze, Secured with Tape -Promogran [place] Matter 1 Pain Scale: 0-10 Numeric Is Patient Pain Free? Yes WC - Visit Discharge Discharge Condition Stable Ambulatory Status Ambulatory Transportation Private Auto Accompanied by mother Medication Reconcilliation completed & Yes provided to patient/care provider Clinical Summary of Care Provided Yes Wound debrided: axilla ulcer Laterality: Left Type of Debridement: Excisional debridement Anesthesia Used: 5% Lidocaine Gel Depth: Down to and including healthy tissue, in the subcutaneous layer Percentage of wound debrided: 100 Instrument Used: 5mm curette Tissue Removed: Subcutaneous tissue and slough Severity: Fat Layer Exposed Amount of bleeding with debridement: Mild Bleeding Controlled with: Pressure, Compression and gauze Patient tolerated procedure well Assessment/Plan Assessment: 1. Left axillary hidradenitis. 2. s/p surgical preparation left axilla with excision hidradenitis (63 cm2). Plan: Wound care - Continue Henrietta covered by gauze dressing changes daily. Operative cultures positive for Actinomyces neuii and Anaerobic cocci. He was discharged on Doxycycline, he completed the Flagyl. Follow up one week. 111xxx-113xx: [id number] Global Visit
[2020-05-24 13:48] VITALS: BP 133/51; PULSE 87; TEMP 35.9; BMI 33.5
--- NOTE | 2020-05-24 14:32 | PCM.WC.PN ---
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 He has also applied Clindamycin gel. He states he has had I&D procedures in the past. He has been having trouble with hidradenitis for the past year. He denies fever. He denies trauma. He has had intermittent drainage. 03/26/20 - Surgical preparation left axilla with excision hidradenitis (63 cm2). He was discharged on 03/27/20 with the wound VAC at 150 mmHg. Wound care - Henrietta covered by gauze daily. Operative cultures positive for Actinomyces neuii and Anaerobic cocci. He was discharged on Doxycycline. Completed the Flagyl was added. He denies any fever and his mother states his apetite has been good. Progress of Wound: Left axilla wound is improved. - Physical Exam Vital Signs Temp Pulse Resp BP 96.6 F L 87 18 133/51 H 05/24/20 13:48 05/24/20 13:48 05/17/20 13:53 05/24/20 13:48 General: Alert, Oriented x3, Cooperative HEENT: Atraumatic Oral: Moist Mucosa Lungs: Normal air movement Cardiovascular: Regular rate Abdomen: Soft Extremities: Capillary Refill Less than 3 Seconds Skin: Ulcer/ Wound - Left axillary ulcer is pink and smaller in size. Wound Measurements and Assessment WC - Nurse 1 - General Ulcer Measurement Start: 05/17/20 13:53 Freq: Status: Active Protocol: Activity Type Activity Date Activity User E-Sign Co-Sign Detail Recorded Client Recorded Date Recorded By Document 05/24/20 13:48 TIEN [id number] 05/24/20 13:50 KR 05/24/20 13:48 Wound Center Nurse 1 [Ulcer Assessment] #1 Left Axilla -Current Size (cm) - Length 0.7 -Current Size (cm) - Width 3 -Current Size (cm) - Depth 0.1 -Total Square Cm 2.1 -Exudate Amt Small -Exudate Type Serosanguineous -Wound Margin Distinct, Outline Attached -Granulation Amt Large (67-100%) -Granulation Quality Red -Texture (Abbie-wound Skin Appearance) Assessed, Scarring -Moisture (Abbie-wound Skin Appearance No Abnormality, ) Assessed -Color (Abbie-wound Skin Appearance) No Abnormality, Assessed -Temperature (Abbie-wound Skin No Abnormality Appearance) (Pt Warm) -Tenderness on Palpation (Abbie-wound No Skin Appearance) -Ulcer Cleansing Rinsed/ Irrigated with Saline -Foul Odor after Cleansing No -Anesthetic Used 4% Lidocaine Solution WC - Nurse 2 - General Ulcer CM Notes Start: 05/17/20 13:53 Freq: Status: Active Protocol: Activity Type Activity Date Activity User E-Sign Co-Sign Detail Recorded Client Recorded Date Recorded By Document 05/24/20 14:07 VALDEMAR [id number] 05/24/20 14:08 VALDEMAR 05/24/20 14:07 Wound Center Nurse 2 [Procedure/Treatment] -Time 14:07 -Correct Patient Yes -Correct Side, Site, Position Yes -Correct Procedure Yes -Procedure Performed Yes -Type of Procedure Debridement -Clinical Debridement Subcutaneous -Tissue Removed Subcutaneous -Post Debridement (cm) - Length 2.4 -Post Debridement (cm) - Width 0.6 -Post Debridement (cm) - Depth 0.1 -Total Square (Post) (cm) 1.44 -Area of Debridement (cm) - Length 2.4 -Area of Debridement (cm) - Width 0.6 -Total Square (Area) (cm) 1.44 -Tunneling No -Undermining/Tunneling No -Circular Undermining No -Wound/Ulcer Outcome Not Healed -Ulcer Cleansing Rinsed/ Irrigated with Saline -Foul Odor after Cleansing No -Bioengineered Tissue No -Bleeding Controlled with Pressure -Offloading No -Treatment Response Procedure Tolerated Well -Debridement - Subq, 1st 20sq cm Yes [See Physician Procedure note for Specifics] Pain Scale: 0-10 Numeric [Pain] -Is Patient Pain Free? Yes WALTER - Nurse 3 - General Ulcer D/C NN Start: 05/17/20 13:53 Freq: Status: Active Protocol: Activity Type Activity Date Activity User E-Sign Co-Sign Detail Recorded Client Recorded Date Recorded By Document 05/24/20 14:15 TIEN [id number] 05/24/20 14:16 TIEN 05/24/20 14:15 Wound Care Nurse 3 [Wound Dressing] #1 Left Axilla -Ulcer Cleansing Rinsed/ Irrigated with Saline -Primary Dressing Applied Promogran [place] Matter -Primary Dressing Covered/Secured Dry Gauze, with Secured with Tape -Promogran [place] Matter 1 Pain Scale: 0-10 Numeric [Pain] -Is Patient Pain Free? Yes WC - Visit Discharge [Visit Discharge Information] -Discharge Condition Stable -Ambulatory Status Ambulatory -Transportation Private Auto -Accompanied by mom Musculoskeletal: No Tenderness to Palpation of Joints or Extremities Neurological: Cranial nerves II-XII grossly intact Psych/Mental Status: Normal Affect, Appropriate Debridement Note Post-Debridement Measurements/Treatment - Nurse 2 - General Ulcer CM Notes Start: 05/17/20 13:53 Freq: Status: Active Protocol: Activity Type Activity Date Activity User E-Sign Co-Sign Detail Recorded Client Recorded Date Recorded By Document 05/17/20 14:07 [id number] 05/17/20 14:09 Document 05/24/20 14:07 [id number] 05/24/20 14:08 05/17/20 05/24/20 14:07 14:07 Wound Center Nurse 2 #1 Left Axilla -Time 14:08 14:07 -Correct Patient Yes Yes -Correct Side, Site, Position Yes Yes -Correct Procedure Yes Yes -Procedure Performed Yes Yes -Type of Procedure Debridement Debridement -Clinical Debridement Subcutaneous Subcutaneous -Tissue Removed Subcutaneous Subcutaneous -Post Debridement (cm) - Length 4.2 2.4 -Post Debridement (cm) - Width 1.0 0.6 -Post Debridement (cm) - Depth 0.1 0.1 -Total Square (Post) (cm) 4.20 1.44 -Area of Debridement (cm) - Length 4.2 2.4 -Area of Debridement (cm) - Width 1.0 0.6 -Total Square (Area) (cm) 4.20 1.44 -Tunneling No No -Undermining/Tunneling No No -Circular Undermining No No -Wound/Ulcer Outcome Not Healed Not Healed -Ulcer Cleansing Rinsed/ Rinsed/ Irrigated with Irrigated with Saline Saline -Foul Odor after Cleansing No No -Bioengineered Tissue No No -Bleeding Controlled with Pressure Pressure -Offloading No No -Treatment Response Procedure Procedure Tolerated Well Tolerated Well -Debridement - Subq, 1st 20sq cm Yes Yes Pain Scale: 0-10 Numeric Is Patient Pain Free? Yes Yes - Nurse 3 - General Ulcer D/C NN Start: 05/17/20 13:53 Freq: Status: Active Protocol: Activity Type Activity Date Activity User E-Sign Co-Sign Detail Recorded Client Recorded Date Recorded By Document 05/17/20 14:11 [id number] 05/17/20 14:12 Document 05/24/20 14:15 KR [id number] 05/24/20 14:16 KR 05/17/20 05/24/20 14:11 14:15 Wound Care Nurse 3 #1 Left Axilla -Ulcer Cleansing Rinsed/ Rinsed/ Irrigated with Irrigated with Saline Saline -Foul Odor after Cleansing No -Primary Dressing Applied Promogran Promogran [place] Matter Henrietta Matter -Primary Dressing Covered/Secured with Dry Gauze, Dry Gauze, Secured with Secured with Tape Tape -Promogran [place] Matter 1 1 Pain Scale: 0-10 Numeric Is Patient Pain Free? Yes Yes - Visit Discharge Discharge Condition Stable Stable Ambulatory Status Ambulatory Ambulatory Transportation Private Auto Private Auto Accompanied by mother mom Medication Reconcilliation completed & Yes provided to patient/care provider Clinical Summary of Care Provided Yes Wound debrided: Left axillary ulcer Laterality: Left Type of Debridement: Excisional debridement Anesthesia Used: 5% Lidocaine Gel Depth: Down to and including healthy tissue, in the subcutaneous layer Percentage of wound debrided: 100 Instrument Used: 3mm curette Tissue Removed: Subcutaneous tissue and slough Severity: Fat Layer Exposed Amount of bleeding with debridement: Mild Bleeding Controlled with: Pressure Patient tolerated procedure well Assessment/Plan Active Problems (Last Reviewed 03/20/20 @ 16:[address] Tommy West MD) Skin ulcer of axilla with fat layer exposed (Chronic) Left axillary hidradenitis (Chronic) Assessment: 1. Left axillary hidradenitis. 2. s/p surgical preparation left axilla with excision hidradenitis (63 cm2). Plan: Wound care - Continue Henrietta covered by gauze dressing changes daily. Operative cultures positive for Actinomyces neuii and Anaerobic cocci. He was discharged on Doxycycline, he completed the Flagyl. Follow up two weeks. 111xxx-113xx: [id number] Global Visit
[2020-06-07 14:25] VITALS: BP 126/80; PULSE 79; RESP 18; TEMP 36.6; BMI 33.5
--- NOTE | 2020-06-07 15:18 | PN.PCM_ITS ---
(1) Skin ulcer of axilla with fat layer exposed Status: Chronic Code(s): L98.492 - Non-pressure chronic ulcer of skin of other sites with fat layer exposed (2) Left axillary hidradenitis Status: Chronic Code(s): L73.2 - Hidradenitis suppurativa Type of Wound Date of Service: 06/07/20 Chief Complaint: Left axilla hidradenitis History of Wound: Patient is a 24 year old male with Down's who had drainage from left axilla and had been placed on a course of Minocycline. He has also applied Clindamycin gel. He states he has had I&D procedures in the past. He has been having trouble with hidradenitis for the past year. He denies fever. He denies trauma. He has had intermittent drainage. 03/26/20 - Surgical preparation left axilla with excision hidradenitis (63 cm2). He was discharged on 03/27/20 with the wound VAC at 150 mmHg. Wound care - Henrietta covered by gauze daily. Operative cultures positive for Actinomyces neuii and Anaerobic cocci. He was discharged on Doxycycline. Completed the Flagyl was added. He denies any fever and his mother states his apetite has been good. Progress of Wound: Left axilla is healed. - Physical Exam Vital Signs Temp Pulse Resp BP 97.8 F 79 18 126/80 H 06/07/20 14:25 06/07/20 14:25 06/07/20 14:25 06/07/20 14:25 General: Alert, Cooperative HEENT: Atraumatic Oral: Moist Mucosa Lungs: Normal air movement Cardiovascular: Regular rate Extremities: No edema, Capillary Refill Less than 3 Seconds Skin: Ulcer/ Wound - Left axilla ulcer is healed. Wound Measurements and Assessment WC - Nurse 1 - General Ulcer Measurement Start: 05/17/20 13:53 Freq: Status: Active Protocol: Activity Type Activity Date Activity User E-Sign Co-Sign Detail Recorded Client Recorded Date Recorded By Document 06/07/20 14:25 DL [id number] 06/07/20 14:28 DL 06/07/20 14:25 Wound Center Nurse 1 [Ulcer Assessment] #1 Left Axilla -Current Size (cm) - Length 0 -Current Size (cm) - Width 0 -Current Size (cm) - Depth 0 -Total Square Cm 0 -Photo Taken Yes -Exudate Amt None Present -Wound Margin Flat & Intact -Granulation Amt Large (67-100%) -Granulation Quality [place] -Necrosis Amt None Present (0 %) -Structure Exposed N/A -Texture (Abbie-wound Skin Appearance) Scarring -Moisture (Abbie-wound Skin Appearance No Abnormality ) -Color (Abbie-wound Skin Appearance) No Abnormality -Temperature (Abbie-wound Skin No Abnormality Appearance) (Pt Warm) -Tenderness on Palpation (Abbie-wound No Skin Appearance) -Ulcer Cleansing Rinsed/ Irrigated with Saline -Foul Odor after Cleansing No - Nurse 2 - General Ulcer CM Notes Start: 05/17/20 13:53 Freq: Status: Active Protocol: Activity Type Activity Date Activity User E-Sign Co-Sign Detail Recorded Client Recorded Date Recorded By Document 06/07/20 14:37 [id number] 06/07/20 14:38 06/07/20 14:37 Wound Center Nurse 2 [Procedure/Treatment] -Correct Patient No -Correct Side, Site, Position No -Correct Procedure No -Procedure Performed No -Post Debridement (cm) - Length 0 -Post Debridement (cm) - Width 0 -Post Debridement (cm) - Depth 0 -Total Square (Post) (cm) 0 -Area of Debridement (cm) - Length 0 -Area of Debridement (cm) - Width 0 -Total Square (Area) (cm) 0 -Wound/Ulcer Outcome Healed- Epithelialized [See Physician Procedure note for Specifics] Pain Scale: 0-10 Numeric [Pain] -Is Patient Pain Free? Yes - Nurse 3 - General Ulcer D/C NN Start: 05/17/20 13:53 Freq: Status: Active Protocol: Activity Type Activity Date Activity User E-Sign Co-Sign Detail Recorded Client Recorded Date Recorded By Document 06/07/20 14:38 [id number] 06/07/20 14:38 06/07/20 14:38 -Is Patient Pain Free? Yes - Visit Discharge [Visit Discharge Information] -Discharge Condition Stable -Ambulatory Status Ambulatory -Transportation Private Auto -Accompanied by mom -Medication Reconcilliation completed Yes & provided to patient/care provider -Clinical Summary of Care Provided Yes Musculoskeletal: No Tenderness to Palpation of Joints or Extremities Neurological: Cranial nerves II-XII grossly intact Psych/Mental Status: Normal Affect, Appropriate Debridement Note Post-Debridement Measurements/Treatment WC - Nurse 2 - General Ulcer CM Notes Start: 05/17/20 13:53 Freq: Status: Active Protocol: Activity Type Activity Date Activity User E-Sign Co-Sign Detail Recorded Client Recorded Date Recorded By Document 05/17/20 14:07 VALDEMAR [id number] 05/17/20 14:09 Document 05/24/20 14:07 [id number] 05/24/20 14:08 Document 06/07/20 14:37 [id number] 06/07/20 14:38 05/17/20 05/24/20 06/07/20 14:07 14:07 14:37 Wound Center Nurse 2 #1 Left Axilla -Time 14:08 14:07 -Correct Patient Yes Yes No -Correct Side, Site, Position Yes Yes No -Correct Procedure Yes Yes No -Procedure Performed Yes Yes No -Type of Procedure Debridement Debridement -Clinical Debridement Subcutaneous Subcutaneous -Tissue Removed Subcutaneous Subcutaneous -Post Debridement (cm) - Length 4.2 2.4 0 -Post Debridement (cm) - Width 1.0 0.6 0 -Post Debridement (cm) - Depth 0.1 0.1 0 -Total Square (Post) (cm) 4.20 1.44 0 -Area of Debridement (cm) - Length 4.2 2.4 0 -Area of Debridement (cm) - Width 1.0 0.6 0 -Total Square (Area) (cm) 4.20 1.44 0 -Tunneling No No -Undermining/Tunneling No No -Circular Undermining No No -Wound/Ulcer Outcome Not Healed Not Healed Healed- Epithelialized -Ulcer Cleansing Rinsed/ Rinsed/ Irrigated with Irrigated with Saline Saline -Foul Odor after Cleansing No No -Bioengineered Tissue No No -Bleeding Controlled with Pressure Pressure -Offloading No No -Treatment Response Procedure Procedure Tolerated Well Tolerated Well -Debridement - Subq, 1st 20sq cm Yes Yes Pain Scale: 0-10 Numeric Is Patient Pain Free? Yes Yes Yes WALTER - Nurse 3 - General Ulcer D/C NN Start: 05/17/20 13:53 Freq: Status: Active Protocol: Activity Type Activity Date Activity User E-Sign Co-Sign Detail Recorded Client Recorded Date Recorded By Document 05/17/20 14:11 VALDEMAR [id number] 05/17/20 14:12 Document 05/24/20 14:15 [id number] 05/24/20 14:16 Document 06/07/20 14:38 [id number] 06/07/20 14:38 05/17/20 05/24/20 06/07/20 14:11 14:15 14:38 Wound Care Nurse 3 #1 Left Axilla -Ulcer Cleansing Rinsed/ Rinsed/ Irrigated with Irrigated with Saline Saline -Foul Odor after Cleansing No -Primary Dressing Applied Promogran Promogran [place] Matter Henrietta Matter -Primary Dressing Covered/Secured with Dry Gauze, Dry Gauze, Secured with Secured with Tape Tape -Promogran [place] Matter 1 1 Pain Scale: 0-10 Numeric Is Patient Pain Free? Yes Yes Yes WC - Visit Discharge Discharge Condition Stable Stable Stable Ambulatory Status Ambulatory Ambulatory Ambulatory Transportation Private Auto Private Auto Private Auto Accompanied by mother mom mom Medication Reconcilliation completed & Yes Yes provided to patient/care provider Clinical Summary of Care Provided Yes Yes No debridement was completed today Assessment/Plan Active Problems (Last Reviewed 03/20/20 @ 16:[address] Tommy West MD) Skin ulcer of axilla with fat layer exposed (Chronic) Left axillary hidradenitis (Chronic) Assessment: 1. Left axillary hidradenitis. 2. s/p surgical preparation left axilla with excision hidradenitis (63 cm2). Plan: He is healed today. Encouraged him to massage the scarring daily to help soften it. He has good range of motion of his left arm/shoulder. Follow up as needed. Operative cultures positive for Actinomyces neuii and Anaerobic cocci. He was discharged on Doxycycline, he completed the Flagyl. 111xxx-113xx: [id number] Global Visit
== END 2020-06-07 14:01 | disposition home or self-care (01) ==
LOC: WC 14:00
PROVIDERS: PCP Nurse Practitioner Primary Care; Referring Provider Surgery; Visit Provider Surgery
DX: L98.492 Non-pressure chronic ulcer of skin of other sites with fat layer exposed (principal); L73.2 Hidradenitis suppurativa; Q90.9 Down syndrome, unspecified; Z79.899 Other long term (current) drug therapy
CPT/HCPCS: 11042; 99213; G0463